=== PATIENT | female | born 1965 | race Caucasian/White ===

== ENCOUNTER 2019-05-22 14:37 | Emergency (ER) | payer MEDICAID ==
--- NOTE | 2019-05-22 16:04 | RADIOLOGY REPORT (SQ) ---
EXAM DESCRIPTION: CT HEAD WITHOUT COMPLETED DATE/TIME: 05/22/2019 3:51 pm REASON FOR STUDY: fall COMPARISON: 03/19/2015 TECHNIQUE: Axial images acquired through the brain without intravenous contrast. Images reviewed wi th bone, brain and subdural windows. Additional sagittal and coronal reconstructions were generated. Images stored on PACS. All CT scanners at this facility use dose modulation, iterative reconstruction, and/or weight based d osing when appropriate to reduce radiation dose to as low as reasonably achievable (ALARA). [facility]: Dose Right [facility]: CareDose [facility]: Dose Right [facility]: Teradose 4D [facility]: Smart IntroMaps RADIATION DOSE: CT Rad equipment meets quality standard of care and radiation dose reduction techniq ues were employed. CTDIvol: 53.2 mGy. DLP: 1017 mGy-cm. mGy. LIMITATIONS: None. FINDINGS: VENTRICLES: Normal size and contour. CEREBRUM: No masses. No hemorrhage. No midline shift. No evidence for acute infarction. Normal gra y/white matter differentiation. No areas of low density in the white matter. CEREBELLUM: No masses. No hemorrhage. No alteration of density. No evidence for acute infarction. EXTRAAXIAL SPACES: No fluid collections. No masses. ORBITS AND GLOBE: No intra- or extraconal masses. Normal contour of globe without masses. CALVARIUM: No fracture. PARANASAL SINUSES: No fluid or mucosal thickening. SOFT TISSUES: No mass or hematoma. OTHER: No other significant finding. IMPRESSION: No acute intracranial pathology. EVIDENCE OF ACUTE STROKE: NO. COMMENT: Quality ID # 436: Final reports with documentation of one or more dose reduction techniques (e.g., Automated exposure control, adjustment of the mA and/or kV according to patient size, use of iterative reconstruction technique) TECHNICAL DOCUMENTATION: JOB ID: [id number] [employer]- All Rights Reserved Reading location - IP/workstation name: [email or web address]
--- NOTE | 2019-05-22 16:06 | RADIOLOGY REPORT (SQ) ---
EXAM DESCRIPTION: CT CERVICAL SPINE WITHOUT COMPLETED DATE/TIME: 05/22/2019 3:51 pm REASON FOR STUDY: fall COMPARISON: CT of the cervical spine without contrast from 03/06/2010. TECHNIQUE: Axial images acquired through the cervical spine without intravenous contrast. Images re viewed with lung, soft tissue and bone windows. Reconstructed coronal and sagittal MPR images review ed. Images stored on PACS. All CT scanners at this facility use dose modulation, iterative reconstruction, and/or weight based d osing when appropriate to reduce radiation dose to as low as reasonably achievable (ALARA). [facility]: Dose Right [facility]: CareDose [facility]: Dose Right [facility]: Teradose 4D [facility]: The Online 401 RADIATION DOSE: CT Rad equipment meets quality standard of care and radiation dose reduction techniq ues were employed. CTDIvol: 28.8 mGy. DLP: 531 mGy-cm. LIMITATIONS: None. FINDINGS: ALIGNMENT: There is reversal of the normal lordotic curvature of the cervical spine. Ther e is no craniocervical or atlantoaxial dissociation. MINERALIZATION: Normal. VERTEBRAL BODIES: The cervical vertebral body heights are preserved. There is no fracture. DISCS: The C6-C7 intervertebral disc space is narrowed and there are prominent anterolateral endplate osteophytes. Evaluation of the spinal canal for stenosis or compression of the cord is limited due to the absence of intravenous contrast. FACETS, LATERAL MASSES, POSTERIOR ELEMENTS: No fracture or malalignment. No osteophytic foraminal st enosis. HARDWARE: None in the spine. VISUALIZED RIBS: No fractures. LUNG APICES AND SOFT TISSUES: 11 x 10 mm hypodense nodule in the anterior aspect of the right thyroid lobe. OTHER: No other finding. IMPRESSION: No acute fracture or malalignment of the cervical spine. TECHNICAL DOCUMENTATION: JOB ID: [id number] Quality ID # [id number]: Final reports with documentation of one or more dose reduction techniques (e.g., Au tomated exposure control, adjustment of the mA and/or kV according to patient size, use of iterative reconstruction technique) 2010 [employer]- All Rights Reserved Reading location - IP/workstation name: [email or web address]
--- NOTE | 2019-05-22 17:21 | ER Document Report ---
ED Dizziness/Weakness - General Chief Complaint: Dizziness Stated Complaint: DIZZINESS Time Seen by Provider: 05/22/19 17:05 Primary Care Provider: HARSHAL FOSTER MD [Primary Care Provider] - Follow up as needed Notes: Patient is a 54-year-old female with history of type 2 diabetes with neuropathy, cirrhosis, hypertension, high cholesterol, chronic dizziness who presents to the emergency department with a chief complaint of dizziness. Patient reports the dizziness began yesterday. Patient reports it feels like the room is spinning and that she could just fall out. Patient did have a fall in the lobby without a loss of consciousness, patient denies any injury or pain from this fall. Patient reports that her blood sugar has been running in the 500s in time even the 600s. Patient reports she has been out of her medications for the few months. Patient reports she recently relocated to [place] 1 month ago. Patient reports she did see Dr. Foster on Monday and was given prescription refills for her medications but that the pharmacy is having trouble filling them due to insurance issues from the other state that she was living in. Patient reports nausea without vomiting or diarrhea. Patient denies recent cough, cold or fever. Patient reports no one has ever given her any medications for her vertigo. Patient denies chest pain or shortness of breath. TRAVEL OUTSIDE OF THE [place] IN LAST 30 DAYS: No - Related Data Allergies/Adverse Reactions: Penicillins Allergy (Verified 04/16/15 11:38) Home Medications: lisinopril Past Medical History - General Information source: Patient - Social History Smoking Status: Unknown if Ever Smoked Lives with: Family Family History: Reviewed & Not Pertinent Patient has suicidal ideation: No Patient has homicidal ideation: No - Past Medical History Cardiac Medical History: Reports: Hx Hypercholesterolemia, Hx Hypertension Denies: Hx Atrial Fibrillation, Hx Congestive Heart Failure, Hx Coronary Artery Disease, Hx Heart Attack, Hx Peripheral Vascular Disease, Hx Pulmonary Embolism, Hx Heart Murmur Pulmonary Medical History: Reports: Hx Bronchitis, Hx COPD, Hx Pneumonia Denies: Hx Asthma, Hx Respiratory Failure, Hx Sleep Apnea, Hx Tuberculosis EENT Medical History: Reports: None Neurological Medical History: Reports: Hx Cerebrovascular Accident - CVA in 1995 (weakness remains L side), Hx Migraine, Hx Seizures. Denies: Hx Parkinson's Disease Endocrine Medical History: Reports: Hx Diabetes Mellitus Type 1, Hx Diabetes Mellitus Type 2. Denies: Hx Graves' Disease, Hx Hyperthyroidism, Hx Hypot hyroidism Renal/ Medical History: Reports: None. Denies: Hx End Stage Renal Disease, Hx Kidney Stones, Hx Ovarian Cysts, Hx Peritoneal Dialysis, Hx Pelvic Inflammatory Disease Malignancy Medical History: Reports: Hx Cervical Cancer. Denies: Hx Breast Cancer, Hx Leukemia, Hx Lung Cancer, Hx Ovarian Cancer GI Medical History: Reports: Hx Gastroesophageal Reflux Disease. Denies: Hx Crohn's Disease, Hx Hiatal Hernia, Hx Irritable Bowel, Hx Liver Failure, Hx Pancreatitis, Hx Ulcer Musculoskeletal Medical History: Reports Hx Arthritis, Denies Hx Fibromyalgia - Been told she should be tested for but never has been, Denies Hx Multiple Sclerosis, Denies Hx Muscular Dystrophy, Denies Hx Systemic Lupus Erythematosus Skin Medical History: Reports None Psychiatric Medical History: Reports: Hx Anxiety, Hx Depression Denies: Hx Bipolar Disorder - told by Dr. Paez she should be diagnosed, Hx Dementia, Hx Post Traumatic Stress Disorder, Hx Schizophrenia Traumatic Medical History: Reports: Hx Fractures - Both legs, R thumb Infectious Medical History: Reports: None. Denies: Hx HIV Past Surgical History: Reports: Hx Appendectomy, Hx Section - x2, Hx Hysterectomy, Hx Orthopedic Surgery - back--L3, 4, 5, Hx Umbilical Hernia, Hx Urinary Tract Surgery - bladder. Denies: Hx Bowel Surgery, Hx Cholecystectomy, Hx Colostomy, Hx Coronary Artery Bypass Graft, Hx Gastric Bypass Surgery, Hx Herniorrhaphy, Hx Mastectomy, Hx Pacemaker, Hx Tonsillectomy, Hx Tubal Ligation - Immunizations Immunizations up to date: Yes Hx Diphtheria, Pertussis, Tetanus Vaccination: Yes Review of Systems - Review of Systems Constitutional: No symptoms reported EENT: No symptoms reported Cardiovascular: Chest pain Respiratory: No symptoms reported Gastrointestinal: No symptoms reported Genitourinary: No symptoms reported Female Genitourinary: No symptoms reported Musculoskeletal: No symptoms reported Skin: No symptoms reported Hematologic/Lymphatic: No symptoms reported Neurological/Psychological: See HPI Physical Exam - Vital signs Vitals: Temp Pulse Resp BP Pulse Ox 98.3 F 92 18 161/65 H 96 05/22/19 15:30 05/22/19 15:30 05/22/19 15:30 05/22/19 15:30 05/22/19 15:30 Interpretation: Hypertensive - Notes Notes: GENERAL: Well-appearing, well-nourished and in no acute distress. HEAD: Atraumatic, normocephalic. EYES: Pupils equal round and reactive to light, extraocular movements intact, sclera anicteric, conjunctiva are normal. ENT: TMs normal, nares patent, oropharynx clear without exudates. Moist mucous membranes. NECK: Normal range of motion, supple without lymphadenopathy or JVD. LUNGS: Breath sounds clear to auscultation bilaterally and equal. No wheezes rales or rhonchi. HEART: Regular rate and rhythm without murmurs, rubs or gallops. ABDOMEN: Soft, nontender, normoactive bowel sounds. No guarding, no rebound. No masses appreciated. BACK: No cervical, thoracic, lumbar midline tenderness. No saddle anesthesia, normal distal neurovascular exam. GENITOURINARY: Deferred. EXTREMITIES: Normal range of motion, no pitting or edema. No clubbing or cyanosis. NEUROLOGICAL: Cranial nerves II through XII grossly intact. Normal speech, gait not tested due to dizziness complaint. PSYCH: Normal mood, normal affect. SKIN: Warm, Dry, normal turgor, no rashes or lesions noted. Course - Re-evaluation Re-evalutation: 05/22/19 19:59 Patient does not want to wait for the urinalysis, IV fluids or VBG. Patient agrees to sign out AGAINST MEDICAL ADVICE. Patient has been sitting upright on her stretcher in no acute distress. Patient reports as long as she does not get up quickly that her dizziness is actually better. Patient reports she does have chronic dizziness. Patient reports her main concern is her diabetes medication. I did inform her that since she saw Dr. Foster 2 days ago I would recommend calling his office tomorrow to explain to them that the pharmacy will not fill her medications. Patient is alert and oriented x4, speech is clear and appropriate. Patient denies pain at this time. Patient has been ambulating back and forth to the nurses station with her walker. We will recheck her blood sugar prior to discharge and give subcutaneous insulin as appropriate. I did encourage the patient after receiving insulin to make sure that she eats dinner tonight. Patient verbalized understanding and denies questions. 05/22/19 20:05 Patient's repeat glucose was 353. This is trending downward. Patient reiterated on importance of following up with her prescriptions for her insulin with Dr. Foster tomorrow. - Vital Signs Vital signs: Temp Pulse Resp BP Pulse Ox 98.3 F 92 18 161/65 H 96 05/22/19 15:30 05/22/19 15:30 05/22/19 15:30 05/22/19 15:30 05/22/19 15:30 - Laboratory Result Diagrams: 05/22/19 17:29 05/22/19 17:29 Laboratory results interpreted by me: 05/22/19 05/22/19 17:29 17:29 Plt Count 113 L Glucose 404 H* Alkaline Phosphatase 178 H Discharge - Discharge Clinical Impression: Dizziness Hyperglycemia due to type 2 diabetes mellitus Qualifiers: Diabetes mellitus half-way insulin use: with long term care pharmacist use Qualified Code(s): E11.65 - Type 2 diabetes mellitus with hyperglycemia Condition: Stable Disposition: AGAINST MEDICAL ADVICE Additional Instructions: *Today was seen in the emergency department for dizziness. It does appear that your blood sugar is extremely elevated at 404. This could contribute and make your dizziness that is chronic worse. We did want you to receive IV fluids and additional blood work but at this time you have politely declined this as you would like to leave. Please follow-up with your primary care physician Dr. Foster tomorrow, please call his office so you can get your prescriptions for your diabetes medications since you just saw him on Monday. Please return to the emergency department if you develop any new or worsening symptoms such as weakness, sweating, confusion or worsening dizziness that is different from your normal. We did obtain a CAT scan of your head and neck which were negative. Diabetes You have an abnormally high blood sugar, suspicious for diabetes. Not all high blood sugar requires long-term treatment. High blood sugar can be due to medications, , or the stress of illness. (These cases are "borderline diabetes.") If the doctor feels your high blood sugar might get better with time, you may not require treatment now. You will be scheduled for further evaluation. It's very important that you follow through. Uncontrolled high blood sugar leads to early heart disease, strokes, nerve damage, eye damage, and kidney damage. All diabetics should follow a diet designed to control the blood sugar. Overweight diabetics should exercise regularly and lose weight. If this is not sufficient to control the blood sugar, pills or insulin shots are necessary. Younger people who develop diabetes almost always require insulin daily. Home testing of blood sugars or urine sugar is required. Diabetic teaching is available to help you figure insulin doses and monitor the blood sugar. Call the physician if there is faintness, excess sleepiness, or very rapid breathing. If hypoglycemia (LOW blood sugar) develops, symptoms are shakiness, weakness, sweating, and confusion. In this case, you should eat or drink something with sugar at once. Referrals: HARSHAL FOSTER MD [Primary Care Provider] - Follow up as needed
[2019-05-22 18:12] LABS: ALBUMIN 4.3 g/dL (3.5-5.0); ALKALINE PHOSPHATASE 178 U/L (38-126); ANION GAP 10 (5-19); ASPARTATE AMINO TRANSFERASE 29 U/L (14-36); BILIRUBIN,DIRECT 0.3 mg/dL (0.0-0.4); BILIRUBIN,TOTAL 0.8 mg/dL (0.2-1.3); BLOOD UREA NITROGEN 13 mg/dL (7-20); CARBON DIOXIDE 28 mmol/L (22-30); CHLORIDE 101 mmol/L (98-107); POTASSIUM 4.5 mmol/L (3.6-5.0); TOTAL PROTEIN 7.3 g/dL (6.3-8.2)
[2019-05-22 18:15] LABS: ABSOLUTE BASOPHILS # (AUTO) 0.1 10^3/uL (0.0-0.2); ABSOLUTE EOSINOPHILS # (AUTO) 0.3 10^3/uL (0.0-0.6); ABSOLUTE LYMPHOCYTES (AUTO) 2.6 10^3/uL (0.5-4.7); ABSOLUTE MONOCYTES (AUTO) 0.4 10^3/uL (0.1-1.4); ABSOLUTE NEUT (AUTO) 4.2 10^3/uL (1.7-8.2); BASOPHILS % (AUTO) 0.7 % (0-2); EOSINOPHILS % (AUTO) 3.5 % (0-6); HEMATOCRIT 44.7 % (36.0-47.0); HEMOGLOBIN 15.2 g/dL (12.0-15.5); LYMPHOCYTES % (AUTO) 34.3 % (13-45); MEAN CORPUSCULAR HEMOGLOBIN 31.8 pg (27.0-33.4); MEAN CORPUSCULAR HGB CONC 34.1 g/dL (32.0-36.0); MEAN CORPUSCULAR VOLUME 94 fl (80-97); MONOCYTES % (AUTO) 5.3 % (3-13); PLATELET COUNT 113 10^3/uL (150-450); RED BLOOD COUNT 4.78 10^6/uL (3.72-5.28); RED CELL DISTRIBUTION WIDTH 13.8 % (11.5-14.0); SEGMENTED NEUTROPHILS % (AUTO) 56.2 % (42-78); TOTAL CELLS COUNTED % (AUTO) 100 %; WHITE BLOOD COUNT 7.5 10^3/uL (4.0-10.5)
[2019-05-22 18:32] LABS: GLUCOSE 404 mg/dL (75-110)
[2019-05-22] MEDS ORDERED: NORMAL SALINE 1000 ML 1,000 ML IV ONE (18:42)
[2019-05-22 20:22] VITALS: BP 153/74
--- NOTE | 2019-05-23 22:04 | EKG REPORT ---
SEVERITY:- NORMAL ECG - SINUS RHYTHM : Confirmed by: Julio Medellin 23-May-2019 22:03:06
== END 2019-05-22 20:20 | disposition left against medical advice (07) ==
LOC: ER 14:37
DX: E11.65 Type 2 diabetes mellitus with hyperglycemia (principal); R42 Dizziness and giddiness; R11.0 Nausea; W18.30XA Fall on same level, unspecified, initial encounter; Y92.239 Unspecified place in hospital as the place of occurrence of the external cause; E11.40 Type 2 diabetes mellitus with diabetic neuropathy, unspecified; I10 Essential (primary) hypertension; J44.9 Chronic obstructive pulmonary disease, unspecified
CPT/HCPCS: 93005; 99284; 36415; 82962; 85025; 80053; 84484; 70450; 72125; 93010; L0120

== ENCOUNTER 2019-06-06 16:12 | Observation (INO) | payer MEDICAID ==
--- NOTE | 2019-06-06 16:29 | ER Document Report ---
ED Medical Screen (RME) - General Chief Complaint: High Blood Sugar Stated Complaint: BLOOD SUGAR TOO HIGH Time Seen by Provider: 06/06/19 16:23 Primary Care Provider: HARSHAL FOSTER MD [Primary Care Provider] - Follow up as needed Mode of Arrival: Wheelchair Information source: Patient Notes: 54-year-old female patient presenting to the emergency department with slurred speech, stuttering speech and sudden onset severe headache. Her friend accompanies her, says they were out to lunch and she was acting fine when all of a sudden she started yelling emergency emergency and started slurring her speech. She is hyperventilating in triage, and is difficult to get an appropriate assessment, she is maintaining her own airway. She will be sent immediately for CT of her head due to the sudden onset headache and apparent altered mental status. She has also not taken her insulin for at least 1 month due to insurance issues. I have greeted and performed a rapid initial assessment of this patient. A comprehensive ED assessment and evaluation of the patient, analysis of test results and completion of the medical decision making process will be conducted by additional ED providers. I have specifically instructed the patient or family members with the patient to immediately return to any nursing staff should anything change in the patient's condition or with their chief complaint. TRAVEL OUTSIDE OF THE [place] IN LAST 30 DAYS: No - Related Data Allergies/Adverse Reactions: carvedilol [From Coreg] Allergy (Verified 06/06/19 16:26) Penicillins Allergy (Verified 06/06/19 16:25) Sulfa (Sulfonamide Antibiotics) Allergy (Verified 06/06/19 16:26) Past Medical History - Past Medical History Cardiac Medical History: Reports: Hx Hypercholesterolemia, Hx Hypertension Denies: Hx Atrial Fibrillation, Hx Congestive Heart Failure, Hx Coronary Artery Disease, Hx Heart Attack, Hx Peripheral Vascular Disease, Hx Pulmonary Embolism, Hx Heart Murmur Pulmonary Medical History: Reports: Hx Bronchitis, Hx COPD, Hx Pneumonia Denies: Hx Asthma, Hx Respiratory Failure, Hx Sleep Apnea, Hx Tuberculosis Neurological Medical History: Reports: Hx Cerebrovascular Accident - CVA in 1995 (weakness remains L side), Hx Migraine, Hx Seizures. Denies: Hx Parkinson's Disease Endocrine Medical History: Reports: Hx Diabetes Mellitus Type 1, Hx Diabetes Mellitus Type 2. Denies: Hx Graves' Disease, Hx Hyperthyroidism, Hx Hypothyroidism Renal/ Medical History: Denies: Hx End Stage Renal Disease, Hx Kidney Stones, Hx Ovarian Cysts, Hx Peritoneal Dialysis, Hx Pelvic Inflammatory Disease Malignancy Medical History: Reports: Hx Cervical Cancer. Denies: Hx Breast Cancer, Hx Leukemia, Hx Lung Cancer, Hx Ovarian Cancer GI Medical History: Reports: Hx Gastroesophageal Reflux Disease. Denies: Hx Crohn's Disease, Hx Hiatal Hernia, Hx Irritable Bowel, Hx Liver Failure, Hx Panc reatitis, Hx Ulcer Musculoskeltal Medical History: Reports Hx Arthritis, Denies Hx Fibromyalgia - Been told she should be tested for but never has been, Denies Hx Multiple Scl erosis, Denies Hx Muscular Dystrophy, Denies Hx Systemic Lupus Erythematosus Psychiatric Medical History: Reports: Hx Anxiety, Hx Depression Denies: Hx Bipolar Disorder - told by Dr. Paez she should be diagnosed, Hx Dementia, Hx Post Traumatic Stress Disorder, Hx Schizophrenia Traumatic Medical History: Reports: Hx Fractures - Both legs, R thumb Infectious Medical History: Denies: Hx HIV Past Surgical History: Reports: Hx Appendectomy, Hx Section - x2, Hx Hysterectomy, Hx Orthopedic Surgery - back--L3, 4, 5, Hx Umbilical Hernia, Hx Urinary Tract Surgery - bladder. Denies: Hx Bowel Surgery, Hx Cholecystectomy, Hx Colostomy, Hx Coronary Artery Bypass Graft, Hx Gastric Bypass Surgery, Hx Herniorrhaphy, Hx Mastectomy, Hx Pacemaker, Hx Tonsillectomy, Hx Tubal Ligation - Immunizations Immunizations up to date: Yes Hx Diphtheria, Pertussis, Tetanus Vaccination: Yes Physical Exam - Vital signs Vitals: Temp Pulse Resp BP Pulse Ox 98.0 F 103 H 18 132/72 H 100 06/06/19 16:20 06/06/19 16:20 06/06/19 16:20 06/06/19 16:20 06/06/19 16:20 Course - Vital Signs Vital signs: Temp Pulse Resp BP Pulse Ox 98.0 F 103 H 18 132/72 H 100 06/06/19 16:20 06/06/19 16:20 06/06/19 16:20 06/06/19 16:20 06/06/19 16:20 Doctor's Discharge - Discharge Referrals: HARSHAL FOSTER MD [Primary Care Provider] - Follow up as needed
--- NOTE | 2019-06-06 16:47 | RADIOLOGY REPORT (SQ) ---
EXAM DESCRIPTION: CHEST SINGLE VIEW COMPLETED DATE/TIME: 06/06/2019 4:39 pm REASON FOR STUDY: headache COMPARISON: 04/16/2015. EXAM PARAMETERS: NUMBER OF VIEWS: One view. TECHNIQUE: Single frontal radiographic view of the chest acquired. RADIATION DOSE: NA LIMITATIONS: None. FINDINGS: LUNGS AND PLEURA: No opacities, masses or pneumothorax. No pleural effusion. MEDIASTINUM AND HILAR STRUCTURES: No masses. Contour normal. HEART AND VASCULAR STRUCTURES: Heart normal in size. Normal vasculature. BONES: No acute findings. HARDWARE: None in the chest. OTHER: No other significant finding. IMPRESSION: NO ACUTE RADIOGRAPHIC FINDING IN THE CHEST. TECHNICAL DOCUMENTATION: JOB ID: [id number] [employer]- All Rights Reserved Reading location - IP/workstation name: [email or web address]
--- NOTE | 2019-06-06 16:47 | RADIOLOGY REPORT (SQ) ---
EXAM DESCRIPTION: CT HEAD WITHOUT COMPLETED DATE/TIME: 06/06/2019 4:37 pm REASON FOR STUDY: headache COMPARISON: 05/22/2019. TECHNIQUE: Axial images acquired through the brain without intravenous contrast. Images reviewed wi th bone, brain and subdural windows. Additional sagittal and coronal reconstructions were generated. Images stored on PACS. All CT scanners at this facility use dose modulation, iterative reconstruction, and/or weight based d osing when appropriate to reduce radiation dose to as low as reasonably achievable (ALARA). [facility]: Dose Right [facility]: CareDose [facility]: Dose Right [facility]: Teradose 4D [facility]: [employer] RADIATION DOSE: CT Rad equipment meets quality standard of care and radiation dose reduction techniq ues were employed. CTDIvol: 53.2 mGy. DLP: 1124 mGy-cm. mGy. LIMITATIONS: None. FINDINGS: VENTRICLES: Normal size and contour. CEREBRUM: No masses. No hemorrhage. No midline shift. No evidence for acute infarction. Normal gra y/white matter differentiation. No areas of low density in the white matter. CEREBELLUM: No masses. No hemorrhage. No alteration of density. No evidence for acute infarction. EXTRAAXIAL SPACES: No fluid collections. No masses. ORBITS AND GLOBE: No intra- or extraconal masses. Normal contour of globe without masses. CALVARIUM: No fracture. PARANASAL SINUSES: No fluid or mucosal thickening. SOFT TISSUES: No mass or hematoma. OTHER: No other significant finding. IMPRESSION: NORMAL BRAIN CT WITHOUT CONTRAST. EVIDENCE OF ACUTE STROKE: NO. COMMENT: Pertinent positive or negative findings of the imaging study reported as a CRITICAL EXAM claudia ALCALA NP at16:40 on 06/06/2019. Category of Critical Exam: Stroke alert. Quality ID # [id number]: Final reports with documentation of one or more dose reduction techniques (e.g., Au tomated exposure control, adjustment of the mA and/or kV according to patient size, use of iterative reconstruction technique) TECHNICAL DOCUMENTATION: JOB ID: [id number] [employer]- All Rights Reserved Reading location - IP/workstation name: [email or web address]
[2019-06-06 17:14] LABS: INTERNATIONAL RATION (INR) 0.98; PARTIAL THROMBOPLASTIN TIME 24.1 SEC (23.5-35.8)
[2019-06-06 17:16] LABS: VENOUS BLOOD BASE EXCESS -0.1 mmol/L; VENOUS BLOOD HCO3 25.3 mmol/L (20-32); VENOUS BLOOD PCO2 43.6 mmHg (35-63); VENOUS BLOOD PH 7.38 (7.30-7.42)
[2019-06-06 17:17] LABS: ABSOLUTE EOSINOPHILS # (AUTO) 0.1 10^3/uL (0.0-0.6); ABSOLUTE LYMPHOCYTES (AUTO) 1.2 10^3/uL (0.5-4.7); ABSOLUTE MONOCYTES (AUTO) 0.3 10^3/uL (0.1-1.4); ABSOLUTE NEUT (AUTO) 2.3 10^3/uL (1.7-8.2); BASOPHILS % (AUTO) 0.6 % (0-2); EOSINOPHILS % (AUTO) 1.7 % (0-6); HEMATOCRIT 39.6 % (36.0-47.0); HEMOGLOBIN 13.5 g/dL (12.0-15.5); LYMPHOCYTES % (AUTO) 30.2 % (13-45); MEAN CORPUSCULAR HEMOGLOBIN 31.6 pg (27.0-33.4); MEAN CORPUSCULAR HGB CONC 34.1 g/dL (32.0-36.0); MEAN CORPUSCULAR VOLUME 93 fl (80-97); MONOCYTES % (AUTO) 6.9 % (3-13); RED BLOOD COUNT 4.27 10^6/uL (3.72-5.28); RED CELL DISTRIBUTION WIDTH 13.2 % (11.5-14.0); SEGMENTED NEUTROPHILS % (AUTO) 60.6 % (42-78); TOTAL CELLS COUNTED % (AUTO) 100 %; WHITE BLOOD COUNT 3.9 10^3/uL (4.0-10.5)
[2019-06-06 17:19] LABS: PLATELET COUNT 95 10^3/uL (150-450)
[2019-06-06 17:34] LABS: ALBUMIN 3.8 g/dL (3.5-5.0); ALKALINE PHOSPHATASE 211 U/L (38-126); ANION GAP 11 (5-19); ASPARTATE AMINO TRANSFERASE 29 U/L (14-36); BILIRUBIN,DIRECT 0.5 mg/dL (0.0-0.4); BILIRUBIN,TOTAL 0.7 mg/dL (0.2-1.3); BLOOD UREA NITROGEN 13 mg/dL (7-20); CARBON DIOXIDE 28 mmol/L (22-30); CHLORIDE 95 mmol/L (98-107); CREATINE KINASE 100 U/L (30-135); POTASSIUM 4.3 mmol/L (3.6-5.0); TOTAL PROTEIN 6.2 g/dL (6.3-8.2)
[2019-06-06 17:48] LABS: GLUCOSE 649 mg/dL (75-110)
[2019-06-06 18:01] LABS: TROPONIN I < 0.012 ng/mL
--- NOTE | 2019-06-06 18:33 | EKG REPORT ---
SEVERITY:- NORMAL ECG - SINUS RHYTHM : Confirmed by: Tommy Butler MD 06-Jun-2019 18:32:14
--- NOTE | 2019-06-06 18:35 | ER Document Report ---
ED General - General Chief Complaint: High Blood Sugar Stated Complaint: BLOOD SUGAR TOO HIGH Time Seen by Provider: 06/06/19 16:23 Primary Care Provider: HARSHAL FOSTER MD [ACTIVE STAFF] - Follow up as needed Mode of Arrival: Wheelchair Information source: Patient TRAVEL OUTSIDE OF THE U.S. IN LAST 30 DAYS: No - HPI Onset: This morning - 54-year-old female arrived with severe diabetes insulin- dependent but off of her insulin for 1 month since she moved here from [place]. Today she began to have slurred speech and arrives with orientation x4. She had "just come from a [employer] dinner where she just ate rice." Staff ordered labs and the patient had a 649 blood sugar on chemistries Onset/Duration: Sudden Quality of pain: No pain Severity: Mild Pain Level: 1 Associated symptoms: Leg swelling, Nausea, Other - She has a history of JACKMAN with liver cirrhosis. Also has leg edema +1 pitting as well as dizziness. Patient usually takes 4 medications for her sugar diabetes. Exacerbated by: Movement Similar symptoms previously: Yes Recently seen / treated by doctor: No - Related Data Allergies/Adverse Reactions: carvedilol [From Coreg] Allergy (Verified 06/06/19 16:26) Penicillins Allergy (Verified 06/06/19 16:25) Sulfa (Sulfonamide Antibiotics) Allergy (Verified 06/06/19 16:26) Past Medical History - General Information source: Patient - Social History Smoking Status: Unknown if Ever Smoked Cigarette use (# per day): No Chew tobacco use (# tins/day): No Smoking Education Provided: No Frequency of alcohol use: None Drug Abuse: None Family History: Reviewed & Not Pertinent Patient has suicidal ideation: No Patient has homicidal ideation: No - Past Medical History Cardiac Medical History: Reports: Hx Hypercholesterolemia, Hx Hypertension Denies: Hx Atrial Fibrillation, Hx Congestive Heart Failure, Hx Coronary Artery Disease, Hx Heart Attack, Hx Peripheral Vascular Disease, Hx Pulmonary Embolism, Hx Heart Murmur Pulmonary Medical History: Reports: Hx Bronchitis, Hx COPD, Hx Pneumonia Denies: Hx Asthma, Hx Respiratory Failure, Hx Sleep Apnea, Hx Tuberculosis Neurological Medical History: Reports: Hx Cerebrovascular Accident - CVA in 1995 (weakness remains L side), Hx Migraine, Hx Seizures. Denies: Hx Parkinson's Disease Endocrine Medical History: Reports: Hx Diabetes Mellitus Type 1, Hx Diabetes Mellitus Type 2. Denies: Hx Graves' Disease, Hx Hyperthyroidism, Hx Hypothyroidism Renal/ Medical History: Denies: Hx End Stage Renal Disease, Hx Kidney Stones, Hx Ovarian Cysts, Hx Peritoneal Dialysis, Hx Pelvic Inflammatory Disease Malignancy Medical History: Reports: Hx Cervical Cancer. Denies: Hx Breast Cancer, Hx Leukemia, Hx Lung Cancer, Hx Ovarian Cancer GI Medical History: Reports: Hx Gastroesophageal Reflux Disease. Denies: Hx Ladle Repairer hn's Disease, Hx Hiatal Hernia, Hx Irritable Bowel, Hx Liver Failure, Hx Pancreatitis, Hx Ulcer Musculoskeletal Medical History: Reports Hx Arthritis, Denies Hx Fibromyalgia - Been told she should be tested for but never has been, Denies Hx Multiple Sclerosis, Denies Hx Muscular Dystrophy, Denies Hx Systemic Lupus Erythematosus Psychiatric Medical History: Reports: Hx Anxiety, Hx Depression Denies: Hx Bipolar Disorder - told by Dr. Paez she should be diagnosed, Hx Dementia, Hx Post Traumatic Stress Disorder, Hx Schizophrenia Traumatic Medical History: Reports: Hx Fractures - Both legs, R thumb Infectious Medical History: Denies: Hx HIV Past Surgical History: Reports: Hx Appendectomy, Hx Section - x2, Hx Hysterectomy, Hx Orthopedic Surgery - back--L3, 4, 5, Hx Umbilical Hernia, Hx Urinary Tract Surgery - bladder. Denies: Hx Bowel Surgery, Hx Cholecystectomy, Hx Colostomy, Hx Coronary Artery Bypass Graft, Hx Gastric Bypass Surgery, Hx Herniorrhaphy, Hx Mastectomy, Hx Pacemaker, Hx Tonsillectomy, Hx Tubal Ligation - Immunizations Immunizations up to date: Yes Hx Diphtheria, Pertussis, Tetanus Vaccination: Yes Review of Systems - Review of Systems Constitutional: Malaise, Weakness EENT: Other - vertigo Cardiovascular: No symptoms reported Respiratory: No symptoms reported Gastrointestinal: Nausea Genitourinary: Dysuria Female Genitourinary: Other - Groin with skin rash yeast Musculoskeletal: Joint swelling, Leg swelling, Ankle swelling Skin: Rash Hematologic/Lymphatic: No symptoms reported Neurological/Psychological: No symptoms reported Physical Exam - Vital signs Vitals: Pulse Ox 98 06/06/19 16:14 Interpretation: Normal - General General appearance: Alert In distress: None - HEENT Head: Normocephalic Eyes: Normal Conjunctiva: Normal Cornea: Normal Extraocular movements intact: Yes Eyelashes: Normal Pupils: PERRL Ears: Normal External canal: Normal Sinus: Normal Nasal: Normal Mucous membranes: Dry Pharynx: Erythema Neck: Normal - Respiratory Respiratory status: No respiratory distress Chest status: Nontender Breath sounds: Normal Chest palpation: Normal - Cardiovascular Rhythm: Regular Heart sounds: Normal auscultation Murmur: No Friction rub: No Kuldeep's crunch: No - Abdominal Inspection: Normal Distension: No distension Bowel sounds: Normal Tenderness: Nontender Organomegaly: Hepatomegaly - Back Back: Normal - Extremities General upper extremity: Normal inspection General lower extremity: Edema Shoulder: Normal Arm: Normal Elbow: Normal Forearm: Normal Wrist: Normal Hand: Normal - Neurological Neuro grossly intact: Yes Cognition: Normal Orientation: AAOx4 [place] Coma Scale Eye Opening: Spontaneous [place] Coma Scale Verbal: Oriented [place] Coma Scale Motor: Obeys Commands [place] Coma Scale Total: 15 Speech: Normal Cranial nerves: Normal Cerebellar coordination: Normal - Psychological Associated symptoms: Normal affect - Skin Skin Temperature: Warm Skin Color: Erythema Course - Vital Signs Vital signs: Temp Pulse Resp BP Pulse Ox 98.0 F 92 12 130/81 H 98 06/06/19 16:20 06/06/19 17:00 06/06/19 22:16 06/06/19 22:16 06/06/19 22:16 - Laboratory Result Diagrams: 06/06/19 16:56 06/06/19 16:56 Laboratory results interpreted by me: 06/06/19 06/06/19 06/06/19 16:56 16:56 21:51 WBC 3.9 L Plt Count 95 L Sodium 133.7 L Chloride 95 L Glucose 649 H* POC Glucose > 550 H* Direct Bilirubin 0.5 H Alkaline Phosphatase 211 H Total Protein 6.2 L 06/06/19 06/06/19 22:31 23:03 WBC Plt Count Sodium Chloride Glucose POC Glucose 546 H* 426 H* Direct Bilirubin Alkaline Phosphatase Total Protein - EKG Interpretation by Me EKG shows normal: Sinus rhythm Rate: Normal - 92 bpm Critical Care Note - Critical Care Note Total time excluding time spent on procedures (mins): 90 Comments: Around 1900 patient pulled out her IV porting that she will get something to drink and eat on her own. Advised me that she was not leaving but she will get something to drink. Already okayed her drinking water. I discussed this case with Dr. Trip Santillan advises another 10 unit push of insulin and then recheck fingerstick blood sugar in 1 hour I spoke with Dr. Dominique again but he advised me that the patient actually sees Dr Mccrary he was called at 00 30 and advised admission Discharge - Discharge Clinical Impression: Hyperglycemia, Tinea, Liver disease Condition: Good Disposition: ADMITTED INPATIENT Admitting Provider: Lidya Unit Admitted: Medical Floor Referrals: HARSHAL FOSTER MD [ACTIVE STAFF] - Follow up as needed
[2019-06-06] MEDS ORDERED: INSULIN REG, HUMAN 100 UNIT/ML 3 ML VIAL (PYX) IV ONE ×2 (19:13→19:14)
[2019-06-06] MEDS ORDERED: NORMAL SALINE 1000 ML 1,000 ML IV ONE (19:16)
[2019-06-06] MEDS ORDERED: FLUCONAZOLE 100 MG TABLET PO ONE (22:42)
[2019-06-07 00:53] LABS: APPEARANCE,URINE CLEAR; BILIRUBIN,URINE NEGATIVE (NEGATIVE); COLOR,URINE YELLOW; GLUCOSE, URINE >=500 mg/dL (NEGATIVE); KETONES,URINE NEGATIVE (NEGATIVE); LEUKOCYTE ESTERASE,URINE NEGATIVE (NEGATIVE); NITRITE,URINE NEGATIVE (NEGATIVE); PROTEIN,URINE NEGATIVE (NEGATIVE); UROBILINOGEN,URINE NEGATIVE mg/dL (<2.0)
[2019-06-07 01:29] LABS: CREATINE KINASE MB 0.75 ng/mL (<4.55); NT PRO BNP 97 pg/mL (<125)
[2019-06-07 01:31] LABS: TROPONIN I < 0.012 ng/mL
[2019-06-07] MEDS ORDERED: NORMAL SALINE 1000 ML 1,000 ML IV PRN (06:11)
[2019-06-07] MEDS ORDERED: NORMAL SALINE 100 ML with INSULIN REGULAR, HUMAN 100 UNIT SUBCUT PRN ×2 (06:13)
[2019-06-07] MEDS ORDERED: DEXTROSE 50%-WATER SYRINGE 12.5 GM/25 ML DOSE IV PRN (06:30)
[2019-06-07] MEDS ORDERED: DEXTROSE 50%-WATER SYRINGE 25 GM/50 ML DOSE IV PRN (06:30)
[2019-06-07] MEDS ORDERED: INSULIN, REGULAR 100 UNIT/100 ML NORMAL SALINE IV PRN ×2 (06:30)
[2019-06-07] MEDS ORDERED: DEXTROSE 40% GEL 15 GM TUBE X 2 PO PRN (06:30)
[2019-06-07] MEDS ORDERED: DEXTROSE 40% GEL 15 GM TUBE PO PRN (06:30)
[2019-06-07] MEDS ORDERED: GLUCAGON,HUMAN RECOMB 1 MG INJ IM PRN (06:30)
[2019-06-07 07:18] LABS: ANION GAP 10 (5-19); BLOOD UREA NITROGEN 10 mg/dL (7-20); CALCIUM 9.3 mg/dL (8.4-10.2); CARBON DIOXIDE 26 mmol/L (22-30); CHLORIDE 105 mmol/L (98-107); GLUCOSE 246 mg/dL (75-110)
[2019-06-07 07:31] LABS: POTASSIUM 3.4 mmol/L (3.6-5.0)
[2019-06-07 08:20] VITALS: BP 124/72
--- NOTE | 2019-06-07 20:12 | PDOC H&P ---
History of Present Illness Admission Date/PCP: 06/07/19 01:14 History of Present Illness: MARCELLUS GUILLERMO is a 54 year old female, Patient with type 2 diabetes mellitus, she just relocated from [place], she has Medicaid insurance, she has been having difficulty getting her medication filled, she came emergency room for evaluation of poorly controlled diabetes, The blood sugar was over 600.She was started on insulin drip. My office has been making arrangement with Medicaid to get patient approved for her medications Past Medical History Cardiac Medical History: Reports: Hyperlipidema, Hypertension Pulmonary Medical History: Reports: Bronchitis, Chronic Obstructive Pulmonary Disease (COPD), Pneumonia Neurological Medical History: Reports: Migraine, Seizures Endocrine Medical History: Reports: Diabetes Mellitus Type 2 Malignancy Medical History: Reports: Cervical Cancer GI Medical History: Reports: Gastroesophageal Reflux Disease Musculoskeltal Medical History: Reports: Arthritis Psychiatric Medical History: Reports: Depression Past Surgical History Past Surgical History: Reports: Appendectomy, Section - x2, Hysterectomy, Orthopedic Surgery - back--L3, 4, 5 Social History Smoking Status: Current Some Day Smoker Cigarettes Packs Per Day: 0.2 Electronic Cigarette use?: Yes - "Not lately" Number of Years Smokin Last Time Smoked: t-1 Frequency of Alcohol Use: None Hx Recreational Drug Use: No Hx Prescription Drug Abuse: No Family History Family History: Reviewed & Not Pertinent Parental Family History Reviewed: Yes Children Family History Reviewed: Yes Sibling(s) Family History Reviewed.: Yes Medication/Allergy Home Medications: Fluticasone Propionate [Flonase Nasal [place] 50 Mcg/[place] 16 gm] 1 spray NASL DAILY 06/07/19 Gabapentin [Neurontin 400 mg Capsule] 400 mg PO BID 06/07/19 Lorazepam [Ativan 0.5 mg Tablet] 0.5 mg PO Q12HP PRN 06/07/19 Meloxicam [Mobic] 15 mg PO DAILY 06/07/19 Spironolactone [Aldactone 100 mg Tablet] 1 tab PO DAILY 06/07/19 Allergies/Adverse Reactions: carvedilol [From Coreg] Allergy (Verified 06/06/19 16:26) Penicillins Allergy (Verified 06/06/19 16:25) Sulfa (Sulfonamide Antibiotics) Allergy (Verified 06/06/19 16:26) Review of Systems Constitutional: ABSENT: chills, fever(s), headache(s), weight gain, weight loss Eyes: ABSENT: visual disturbances Ears: ABSENT: hearing changes Cardiovascular: ABSENT: chest pain, dyspnea on exertion, edema, orthropnea, palpitations Respiratory: ABSENT: cough, hemoptysis Gastrointestinal: ABSENT: abdominal pain, constipation, diarrhea, hematemesis, hematochezia, nausea, vomiting Genitourinary: ABSENT: dysuria, hematuria Musculoskeletal: ABSENT: joint swelling Integumentary: ABSENT: rash, wounds Neurological: ABSENT: abnormal gait, abnormal speech, confusion, dizziness, focal weakness, syncope Psychiatric: ABSENT: anxiety, depression, homidical ideation, suicidal ideation Endocrine: PRESENT: polydipsia, polyuria Hematologic/Lymphatic: ABSENT: easy bleeding, easy bruising, lymphadenopathy Physical Exam Vital Signs: Temp Pulse Resp BP Pulse Ox 98.1 F 78 18 124/72 99 06/07/19 08:13 06/07/19 08:13 06/07/19 08:13 06/07/19 08:13 06/07/19 08:13 Intake & Output 06/06/19 06/07/19 06/08/19 06:59 06:59 06:59 Intake Total 200 1115 Balance 200 1115 Weight 101.9 kg General appearance: PRESENT: obese Head exam: PRESENT: atraumatic, normocephalic Eye exam: PRESENT: PERRLA Ear exam: PRESENT: normal external ear exam Mouth exam: PRESENT: moist, tongue midline Neck exam: PRESENT: full ROM Respiratory exam: PRESENT: clear to auscultation aniket Cardiovascular exam: PRESENT: RRR, +S1, +S2 Pulses: PRESENT: normal dorsalis pedis pul, +2 pedal pulses bilateral Vascular exam: PRESENT: normal capillary refill GI/Abdominal exam: PRESENT: normal bowel sounds, soft Rectal exam: PRESENT: deferred Neurological exam: PRESENT: alert, CN II-XII grossly intact Psychiatric exam: PRESENT: appropriate affect, normal mood Skin exam: PRESENT: dry Results Laboratory Results: 06/06/19 16:56 06/07/19 06:34 06/07/19 06/07/19 00:35 06:34 Sodium 140.6 Potassium 3.4 L Chloride 105 Carbon Dioxide 26 Anion Gap 10 BUN 10 Creatinine 0.51 L Est GFR ( Amer) > 60 Glucose 246 H Calcium 9.3 Urine Color YELLOW Urine Appearance CLEAR Urine pH 6.0 Ur Specific [place] 1.030 Urine Protein NEGATIVE Urine Glucose (UA) >=500 H Urine Ketones NEGATIVE Urine Blood NEGATIVE Urine Nitrite NEGATIVE Ur Leukocyte Esterase NEGATIVE Urine WBC (Auto) 0 Urine RBC (Auto) 0 06/06/19 06/06/19 06/07/19 16:56 16:56 00:49 Creatine Kinase 100 CK-MB (CK-2) 1.20 0.75 Troponin I < 0.012 < 0.012 NT-Pro-B Natriuret Pep 97 Impressions: Chest X-Ray 06/06/19 16:26 IMPRESSION: NO ACUTE RADIOGRAPHIC FINDING IN THE CHEST. Head CT 06/06/19 16:26 IMPRESSION: NORMAL BRAIN CT WITHOUT CONTRAST. EVIDENCE OF ACUTE STROKE: NO. Assessment & Plan - Diagnosis (1) Diabetic hyperosmolar non-ketotic state Is this a current diagnosis for this admission?: Yes Plan: Patient treated with intravenous normal saline, insulin drip (2) Morbid obesity Is this a current diagnosis for this admission?: Yes
--- NOTE | 2019-06-07 20:26 | Left Against Medical Advice ---
Against Medical Advice Admission Date/Time: 06/07/19 01:14 Primary Care Provider: Date of Patient Emigration: 06/07/19 - Diagnosis: (1) Diabetic hyperosmolar non-ketotic state Is this a current diagnosis for this admission?: Yes (2) Morbid obesity Is this a current diagnosis for this admission?: Yes - Summary: Summary: Please see Admission and Progress Notes as well. MARCELLUS GUILLERMO is a 54 F, who LEFT AGAINST MEDICAL ADVICE. The Patient was admitted on 06/07/19 01:14 Patient left AMA before management was complete, she was admitted today
== END 2019-06-07 11:05 | disposition left against medical advice (07) ==
LOC: ER 16:12 → INTOOBSV 06-07 01:14 → EH 06-07 01:14 → 3W 06-07 03:07
PROVIDERS: ADMIT Internal Medicine; ATTEND Internal Medicine
DX: E11.00 Type 2 diabetes mellitus with hyperosmolarity without nonketotic hyperglycemic-hyperosmolar coma (NKHHC) (principal); T38.3X6A Underdosing of insulin and oral hypoglycemic [antidiabetic] drugs, initial encounter; E66.01 Morbid (severe) obesity due to excess calories; Z85.41 Personal history of malignant neoplasm of cervix uteri; Z90.49 Acquired absence of other specified parts of digestive tract; F17.210 Nicotine dependence, cigarettes, uncomplicated; K75.81 Nonalcoholic steatohepatitis (NASH); R60.0 Localized edema; I69.354 Hemiplegia and hemiparesis following cerebral infarction affecting left non-dominant side; B35.9 Dermatophytosis, unspecified; R51 Headache
CPT/HCPCS: 93005; 99285; 96360; 96361; 36415 ×2; 82553 ×2; 82962 ×2; 82550; 85025; 85610; 85730; 80048; 80053; 81001; 84484 ×2; 82803; 83880; 71045; 70450; 93010; G0378 ×2; J1815 ×2; J7050; J7030 ×2; J3490

== ENCOUNTER 2019-07-02 22:06 | Inpatient (IN) | payer MEDICAID ==
[2019-07-03 01:50] LABS: ABSOLUTE EOSINOPHILS # (AUTO) 0.1 10^3/uL (0.0-0.6); ABSOLUTE MONOCYTES (AUTO) 0.5 10^3/uL (0.1-1.4); ABSOLUTE NEUT (AUTO) 4.8 10^3/uL (1.7-8.2); BASOPHILS % (AUTO) 0.5 % (0-2); EOSINOPHILS % (AUTO) 1.3 % (0-6); HEMATOCRIT 39.2 % (36.0-47.0); HEMOGLOBIN 13.5 g/dL (12.0-15.5); LYMPHOCYTES % (AUTO) 35.6 % (13-45); MEAN CORPUSCULAR HEMOGLOBIN 31.2 pg (27.0-33.4); MEAN CORPUSCULAR HGB CONC 34.4 g/dL (32.0-36.0); MEAN CORPUSCULAR VOLUME 91 fl (80-97); MONOCYTES % (AUTO) 5.6 % (3-13); PLATELET COUNT 121 10^3/uL (150-450); RED BLOOD COUNT 4.32 10^6/uL (3.72-5.28); TOTAL CELLS COUNTED % (AUTO) 100 %; WHITE BLOOD COUNT 8.5 10^3/uL (4.0-10.5)
[2019-07-03 01:59] LABS: INTERNATIONAL RATION (INR) 1.09; PROTHROMBIN TIME 14.1 SEC (11.4-15.4)
[2019-07-03 02:08] LABS: ALBUMIN 3.4 g/dL (3.5-5.0); ALKALINE PHOSPHATASE 114 U/L (38-126); ANION GAP 7 (5-19); ASPARTATE AMINO TRANSFERASE 15 U/L (14-36); BILIRUBIN,TOTAL 0.8 mg/dL (0.2-1.3); BLOOD UREA NITROGEN 16 mg/dL (7-20); CARBON DIOXIDE 29 mmol/L (22-30); CHLORIDE 102 mmol/L (98-107); CREATINE KINASE 31 U/L (30-135); GLUCOSE 328 mg/dL (75-110); POTASSIUM 3.8 mmol/L (3.6-5.0)
[2019-07-03 02:20] LABS: CREATINE KINASE MB 0.25 ng/mL (<4.55)
[2019-07-03 02:21] LABS: TROPONIN I < 0.012 ng/mL
--- NOTE | 2019-07-03 03:29 | ER Document Report ---
ED General - General Chief Complaint: Leg Swelling Stated Complaint: RIGHT LEG SWOLLEN AND PAIN Time Seen by Provider: 07/03/19 02:47 Primary Care Provider: JOSE ELIAS LOU MD [Primary Care Provider] - Follow up as needed Notes: 54-year-old diabetic female presents emergency department complaining that she lost use of her right leg today. States that she has had a significant increase in pain and that when she tries to stand on her right leg it simply gives out due to pain. Patient states this is really unusual because she has a history of diabetic neuropathy and normally cannot feel her right foot or most of her leg at all. Patient just noticed today that her right great toe was red and swollen. Caty ent complains that for the past 2 days she has been having sweats and chills and fever but no source of infection. Denies chest pain or shortness of breath, denies vomiting. TRAVEL OUTSIDE OF THE [place].S[place] IN LAST 30 DAYS: No - Related Data Allergies/Adverse Reactions: adhesive tape Allergy (Verified 07/03/19 01:09) carvedilol [From Coreg] Allergy (Verified 07/03/19 01:09) Penicillins Allergy (Verified 07/03/19 01:09) Sulfa (Sulfonamide Antibiotics) Allergy (Verified 07/03/19 01:09) Past Medical History - General Information source: Patient - Social History Smoking Status: Current Every Day Smoker Frequency of alcohol use: None Drug Abuse: None Family History: DM Patient has suicidal ideation: No Patient has homicidal ideation: No - Past Medical History Cardiac Medical History: Reports: Hx Hypercholesterolemia, Hx Hypertension Denies: Hx Atrial Fibrillation, Hx Congestive Heart Failure, Hx Coronary Artery Disease, Hx Heart Attack, Hx Peripheral Vascular Disease, Hx Pulmonary Embolism, Hx Heart Murmur Pulmonary Medical History: Reports: Hx Bronchitis, Hx COPD, Hx Pneumonia Denies: Hx Asthma, Hx Respiratory Failure, Hx Sleep Apnea, Hx Tuberculosis Neurological Medical History: Reports: Hx Cerebrovascular Accident - CVA in 1995 (weakness remains L side), Hx Migraine, Hx Seizures. Denies: Hx Parkinson's Disease Endocrine Medical History: Reports: Hx Diabetes Mellitus Type 1, Hx Diabetes Mellitus Type 2. Denies: Hx Graves' Disease, Hx Hyperthyroidism, Hx Hypo thyroidism Renal/ Medical History: Denies: Hx End Stage Renal Disease, Hx Kidney Stones, Hx Ovarian Cysts, Hx Peritoneal Dialysis, Hx Pelvic Inflammatory Disease Malignancy Medical History: Reports: Hx Cervical Cancer. Denies: Hx Breast Cancer, Hx Leukemia, Hx Lung Cancer, Hx Ovarian Cancer GI Medical History: Reports: Hx Gastroesophageal Reflux Disease. Denies: Hx Crohn's Disease, Hx Hiatal Hernia, Hx Irritable Bowel, Hx Liver Failure, Hx Pancreatitis, Hx Ulcer Musculoskeletal Medical History: Reports Hx Arthritis, Denies Hx Fibromyalgia - Been told she should be tested for but never has been, Denies Hx Multiple Sclerosis, Denies Hx Muscular Dystrophy, Denies Hx Systemic Lupus Erythematosus Psychiatric Medical History: Reports: Hx Anxiety, Hx Depression Denies: Hx Bipolar Disorder - told by Dr. Paez she should be diagnosed, Hx Dementia, Hx Post Traumatic Stress Disorder, Hx Schizophrenia Traumatic Medical History: Reports: Hx Fractures - Both legs, R thumb Infectious Medical History: Denies: Hx HIV Past Surgical History: Reports: Hx Appendectomy, Hx Section - x2, Hx Hysterectomy, Hx Orthopedic Surgery - back--L3, 4, 5, Hx Umbilical Hernia, Hx Urinary Tract Surgery - bladder. Denies: Hx Bowel Surgery, Hx Cholecystectomy, Hx Colostomy, Hx Coronary Artery Bypass Graft, Hx Gastric Bypass Surgery, Hx Herniorrhaphy, Hx Mastectomy, Hx Pacemaker, Hx Tonsillectomy, Hx Tubal Ligation - Immunizations Immunizations up to date: Yes Hx Diphtheria, Pertussis, Tetanus Vaccination: Yes Review of Systems - Review of Systems Constitutional: See HPI, Chills, Diaphoresis, Fever Cardiovascular: No symptoms reported Respiratory: No symptoms reported Musculoskeletal: See HPI - Right leg weakness, swelling of the foot and leg. Skin: See HPI Neurological/Psychological: See HPI, Weakness - Weakness though likely secondary due to pain. -: Yes All other systems reviewed and negative Physical Exam - Vital signs Vitals: Temp Pulse Resp BP Pulse Ox 99.9 F 72 20 114/52 L 98 07/02/19 22:21 07/02/19 22:21 07/02/19 22:21 07/02/19 22:21 07/02/19 22:21 Interpretation: Normal - Notes Notes: GENERAL: Alert, interacts well. No acute distress. HEAD: Normocephalic, atraumatic EYES: Pupils equal, round and reactive to light, extraocular movements intact. ENT: Oral mucosa moist, tongue midline. NECK: Full range of motion, supple, trachea midline. LUNGS: Clear to auscultation bilaterally, no wheezes, rales or rhonchi, no respiratory distress. HEART: Regular rate and rhythm, no murmurs, gallops, rubs. ABDOMEN: Soft, nontender, nondistended, bowel sounds present in all 4 quadrants. EXTREMITIES: Moves all 4 extremities spontaneously, 1+ edema to the right leg to mid tibia, radial and dorsalis pedis pulses 2/4 bilaterally. No cyanosis. NEUROLOGICAL: Alert and oriented x3, normal speech, significantly decreased sensation of the bilateral lower extremities, patient can feel the pressure of me squeezing her right great toe to express pus but otherwise cannot feel me touching her foot. Patient is able to range her right leg and foot through full range of motion, no weakness. PSYCH: Normal mood, normal affect. SKIN: Right great toe is red, swollen, hot to the touch, there is thickened skin noted to the plantar aspect of the right great toe near the base consistent with possible plantar wart versus diabetic foot ulcer, small amount of pus is able to be expressed from this by squeezing. Does have a foul odor. Course - Re-evaluation Re-evalutation: 07/03/19 04:48 CBC shows thrombocytopenia with platelets of 121 otherwise unremarkable, d-dimer is elevated but this is likely due to inflammation coming from an acutely infected toe, chemistries reveal elevated glucose at 328, otherwise unremarkable, troponin negative. 07/03/19 04:49 Purulent discharge was able to be expressed from the plantar aspect of the right foot. I then performed an I&D on this area, actually ended up removing a small piece of rock from her foot and there was some purulent drainage around it, wound cultures were sent, some of the hard skin in the area was debrided. Wound did not probe to bone. Patient is started on IV antibiotics in the form of vancomycin and clindamycin as patient is unfortunately allergic to penicillins so I cannot use Zosyn. I am awaiting a phone call back from the hospitalist to admit this diabetic patient with cellulitis and abscess of the right great toe and fevers at home. 07/03/19 05:42 07/03/19 05:[address] Basurto, agrees to accept the patient to his service. Of note patient used to be a patient of Dr. Mccrary'janey but has recently switched to [facility]. - Vital Signs Vital signs: Temp Pulse Resp BP Pulse Ox 99.8 F 95 20 95/61 L 98 07/03/19 02:02 07/03/19 02:02 07/03/19 02:02 07/03/19 02:02 07/03/19 02:02 - Laboratory Result Diagrams: 07/03/19 01:30 07/03/19 01:30 Laboratory results interpreted by me: 07/03/19 07/03/19 07/03/19 01:30 01:30 01:30 Plt Count 121 L D-Dimer 1.20 H Glucose 328 H Total Protein 6.0 L Albumin 3.4 L Procedures - Incision and Drainage Right Toe Great toe Type: Complex, Single Blade size: 11 I&D procedure: Chlorprep applied Incision Method: Incision made by scalpel Amount/type of drainage: Small rock removed, purulent drainage. Notes: 07/03/19 04:51 Small rock removed, there was a small amount of purulent drainage, wound culture was sent. Some of the skin around it was debrided as it was trapping some pus. Patient tolerated procedure well. Discharge - Discharge Clinical Impression: Abscess of great toe, right, Cellulitis of great toe, right Diabetes Qualifiers: Diabetes mellitus type: type 2 Diabetes mellitus penitentiary insulin use: unspecified exterminator insulin use status Diabetes mellitus complication status: with hyperglycemia Qualified Code(s): E11.65 - Type 2 diabetes mellitus with hyperglycemia Condition: Good Disposition: ADMITTED INPATIENT Admitting Provider: Sb (Hospitalist) Unit Admitted: Medical Floor Referrals: JOSE ELIAS LOU MD [Primary Care Provider] - Follow up as needed
[2019-07-03] MEDS ORDERED: VANCOMYCIN HCL INJ 1000 MG VIAL IV ONE (04:01)
[2019-07-03] MEDS ORDERED: CLINDAMYCIN 600 MG/D5W RTU 600 MG/50 ML RTUPB IV ONE (04:01)
[2019-07-03] MEDS ORDERED: INSULIN REG, HUMAN 100 UNIT/ML 3 ML VIAL (PYX) IV ONE (04:47)
[2019-07-03] MEDS ORDERED: MAG HYDROX/AL HYDROX/SIMETH SUSP 30 ML UDCUP PO PRN (06:07)
[2019-07-03] MEDS ORDERED: PROMETHAZINE HCL INJ 25 MG/1 ML VIAL IV PRN (06:07)
[2019-07-03] MEDS ORDERED: MAGNESIUM HYDROXIDE SUSP 30 ML UDCUP PO PRN (06:07)
--- NOTE | 2019-07-03 06:07 | RADIOLOGY REPORT (SQ) ---
EXAM DESCRIPTION: XR FOOT 3 OR MORE VIEWS COMPLETED DATE/TME: 07/03/2019 04:01 CLINICAL HISTORY: 54 years, Female, possible osteo right great toe COMPARISON: None. NUMBER OF VIEWS: 3 TECHNIQUE: 3 views right foot LIMITATIONS: None. FINDINGS: Osteopenia. Diffuse soft tissue swelling. Soft tissue ulceration is seen on the plantar aspect of the great toe on the lateral view. No underlying acute osseous abnormality. No soft tissue gas. Calcaneal spurs IMPRESSION: Plantar soft tissue ulceration of the great toe. No acute osseous abnormality copyright 2010 [employer]- All Rights Reserved
[2019-07-03] MEDS ORDERED: MORPHINE SULFATE 10 MG/ML INJ IV PRN ×3 (06:10)
[2019-07-03] MEDS ORDERED: HYDRALAZINE HCL INJ/PF 20 MG/1 ML SDV IV PRN (06:10)
[2019-07-03] MEDS ORDERED: ACETAMINOPHEN 325 MG TABLET PO PRN (06:10)
[2019-07-03] MEDS ORDERED: LORAZEPAM INJ 2 MG/1 ML VIAL IV PRN (06:10)
[2019-07-03] MEDS ORDERED: NICOTINE 21 MG/24 HR PATCH.TD24 TD PRN (06:10)
[2019-07-03] MEDS ORDERED: DEXTROSE 50%-WATER 25 GM/50 ML DISP.SYRIN IV PRN ×2 (06:11)
[2019-07-03] MEDS ORDERED: DEXTROSE 40% GEL 15 GM TUBE PO PRN ×2 (06:11)
[2019-07-03] MEDS ORDERED: GLUCAGON,HUMAN RECOMB 1 MG INJ IM PRN (06:11)
[2019-07-03] MEDS ORDERED: VANCOMYCIN HCL INJ 1000 MG VIAL IV SCH (06:15)
[2019-07-03] MEDS ORDERED: AZTREONAM 1.5 GM in DEXTROSE 5%-WATER 100 ML IV ONE (07:00)
--- NOTE | 2019-07-03 07:08 | PDOC H&P ---
History of Present Illness Admission Date/PCP: 07/03/2019 05:51 JOSE ELIAS LOU MD Patient complains of: Right leg pain History of Present Illness: MARCELLUS GUILLERMO is a 54 year old female with acute right leg pain. She admits that she developed generalized, deep aching right leg pain on 07/02/2019 that is severe and prevents her from trying to bear weight due to increased pain. She further admits an accompanying red swollen right great toe, noted when she was checking her leg. She has a chronic diabetic neuropathy involving the right lower extremity which causes her to have essentially no sensation in the leg. She also acknowledges an associated subjective fever and chills over the last 2 days. She denies other accompanying or associated signs and symptoms. She denies prior similar episodes. She has not identified any additional aggravating or ameliorating factors for her right leg pain. In the emergency room she was found to have a fever with a red swollen and tender right great toe foot and lower leg. Her white blood count was normal but she was noted to have an open ulcer on the plantar aspect of the right great toe from which a foreign body (pebble) was removed by the emergency room physician. Patient was subsequently admitted to the hospital for further evaluation treatment. Past Medical History Cardiac Medical History: Reports: Hyperlipidema, Hypertension Denies: Atrial Fibrillation, Congestive Heart Failure, Coronary Artery Disease, Myocardial Infarction, Peripheral Vascular Disease, Pulmonary Embolism, Heart Murmur Pulmonary Medical History: Reports: Bronchitis, Chronic Obstructive Pulmonary Disease (COPD), Pneumonia Denies: Asthma, Respiratory Failure, Sleep Apnea, Tuberculosis EENT Medical History: Denies: Cataracts, Ears - Hearing aids Neurological Medical History: Reports: Migraine, Seizures, Other - Diabetic peripheral neuropathy Denies: Hemorrhagic CVA, Ischemic CVA Endocrine Medical History: Reports: Diabetes Mellitus Type 2 Denies: Diabetes Mellitus Type 1, Hyperthyroidism, Hypothyroidism Renal/ Medical History: Denies: Chronic Kidney Disease, Nephrolithiasis Malignancy Medical History: Reports: Cervical Cancer GI Medical History: Reports: Gastroesophageal Reflux Disease Denies: Cirrhosis, Crohn's Disease, Hepatitis, Hiatal Hernia, Ulcerative Colitis Musculoskeltal Medical History: Reports: Arthritis Denies: Fibromyalgia, Gout Skin Medical History: Denies: Eczema, Psoriasis Psychiatric Medical History: Reports: Bipolar Disorder, Depression Denies: Alcohol Dependency, Substance Abuse, Tobacco Dependency Traumatic Medical History: Reports: None Hematology: Denies: Anemia, Bleeding Tendencies Infectious Medical History: Reports: None Past Surgical History Past Surgical History: Reports: Appendectomy, Section - x2, Cholecystectomy, Hysterectomy, Orthopedic Surgery - back--L3, 4, 5 Social History Information Source: Patient Lives with: Family Smoking Status: Current Every Day Smoker Electronic Cigarette use?: No Frequency of Alcohol Use: None Hx Recreational Drug Use: No Drugs: None Hx Prescription Drug Abuse: No - Advance Directive Resuscitation Status: Full Code Surrogate healthcare decision maker:: Marleny Case Family History Family History: DM, Hypertension. denies: CAD, Malignancy Parental Family History Reviewed: Yes Children Family History Reviewed: No Sibling(s) Family History Reviewed.: Yes Medication/Allergy Home Medications: Fluticasone Propionate [Flonase Nasal [place] 50 Mcg/[place] 16 gm] 1 spray NASL DAILY 06/07/19 Gabapentin [Neurontin 400 mg Capsule] 400 mg PO BID 06/07/19 Lorazepam [Ativan 0.5 mg Tablet] 0.5 mg PO Q12HP PRN 06/07/19 Meloxicam [Mobic] 15 mg PO DAILY 06/07/19 Spironolactone [Aldactone 100 mg Tablet] 1 tab PO DAILY 06/07/19 Allergies/Adverse Reactions: adhesive tape Allergy (Verified 07/03/19 01:09) carvedilol [From Coreg] Allergy (Verified 07/03/19 01:09) Penicillins Allergy (Verified 07/03/19 01:09) Sulfa (Sulfonamide Antibiotics) Allergy (Verified 07/03/19 01:09) Review of Systems Constitutional: PRESENT: as per HPI, chills, fever(s) Eyes: ABSENT: visual disturbances, other - Eye pain Ears: ABSENT: hearing changes, other - Ear pain Nose, Mouth, and Throat: ABSENT: headache(s), mouth pain, sore throat Cardiovascular: ABSENT: chest pain, palpitations Respiratory: ABSENT: cough, dyspnea Gastrointestinal: ABSENT: abdominal pain, constipation, diarrhea, nausea, vomiting Genitourinary: ABSENT: dysuria, hematuria Musculoskeletal: ABSENT: back pain, joint swelling Integumentary: PRESENT: as per HPI, erythema - Right great toe foot and lower leg. ABSENT: pruritus, rash Neurological: ABSENT: confusion, convulsions, focal weakness, memory loss, syncope Psychiatric: ABSENT: anxiety, depression Endocrine: ABSENT: cold intolerance, heat intolerance, polydipsia, polyphagia, polyuria Hematologic/Lymphatic: ABSENT: easy bleeding, easy bruising Allergic/Immunologic: ABSENT: seasonal rhinorrhea Physical Exam Vital Signs: Temp Pulse Resp BP Pulse Ox 99.8 F 95 20 95/61 L 98 07/03/19 02:02 07/03/19 02:02 07/03/19 02:02 07/03/19 02:02 07/03/19 02:02 Intake & Output 07/01/19 07/02/19 07/03/19 23:59 23:59 23:59 Weight 104.326 kg General appearance: PRESENT: no acute distress, cooperative Head exam: PRESENT: atraumatic, normocephalic Eye exam: PRESENT: conjunctiva pink. ABSENT: conjunctival injection, scleral icterus Ear exam: PRESENT: normal external ear exam. ABSENT: bleeding, drainage Mouth exam: PRESENT: dry mucosa, neck supple Neck exam: ABSENT: thyromegaly, tracheal deviation Respiratory exam: PRESENT: clear to auscultation aniket, symmetrical, unlabored Cardiovascular exam: PRESENT: RRR. ABSENT: clicks, gallop, rubs Pulses: PRESENT: normal carotid pulses, normal radial pulses Vascular exam: PRESENT: normal capillary refill. ABSENT: pallor GI/Abdominal exam: PRESENT: normal bowel sounds, soft Rectal exam: PRESENT: deferred Extremities exam: PRESENT: pedal edema - Right foot with moderate edema and erythema, tenderness - Right foot and lower extremity. ABSENT: joint swelling Musculoskeletal exam: ABSENT: deformity, dislocation Neurological exam: PRESENT: alert, oriented to person, oriented to place, oriented to time, oriented to situation, CN II-XII grossly intact, motor sensory deficit - Marked decreased tactile sensation in the bilateral lower extremities Psychiatric exam: PRESENT: appropriate affect, normal mood Skin exam: PRESENT: dry, erythema - Erythema edema and plantar surface ulceration of the right great toe with extended erythema and edema into the right foot and lower leg., warm. ABSENT: jaundice, rash, urticaria Results Laboratory Results: 07/03/19 01:30 07/03/19 01:30 07/03/19 07/03/19 01:30 01:30 WBC 8.5 RBC 4.32 Hgb 13.5 Hct 39.2 MCV 91 MCH 31.2 MCHC 34.4 RDW 13.0 Plt Count 121 L Seg Neutrophils % 57.0 Sodium 137.9 Potassium 3.8 Chloride 102 Carbon Dioxide 29 Anion Gap 7 BUN 16 Creatinine 0.65 Est GFR ( Amer) > 60 Glucose 328 H Calcium 9.0 Total Bilirubin 0.8 AST 15 Alkaline Phosphatase 114 Total Protein 6.0 L Albumin 3.4 L 07/03/19 07/03/19 07/03/19 01:30 01:30 04:40 Creatine Kinase 31 CK-MB (CK-2) 0.25 Troponin I < 0.012 < 0.012 Assessment and Plan - Diagnosis (1) Abscess of great toe, right Is this a current diagnosis for this admission?: Yes (2) Cellulitis of toe of right foot Is this a current diagnosis for this admission?: Yes (3) Diabetes mellitus type 2 in obese Is this a current diagnosis for this admission?: Yes (4) Diabetes mellitus type 2 with neurological manifestations Is this a current diagnosis for this admission?: Yes (5) Hypertension Qualifiers: Hypertension type: essential hypertension Qualified Code(s): I10 - Essential (primary) hypertension Is this a current diagnosis for this admission?: Yes (6) Hyperlipidemia Qualifiers: Hyperlipidemia type: unspecified Qualified Code(s): E78.5 - Hyperlipidemia, unspecified Is this a current diagnosis for this admission?: Yes (7) COPD (chronic obstructive pulmonary disease) Qualifiers: COPD type: unspecified COPD Qualified Code(s): J44.9 - Chronic obstructive pulmonary disease, unspecified Is this a current diagnosis for this admission?: Yes (8) GERD (gastroesophageal reflux disease) Qualifiers: Esophagitis presence: esophagitis presence not specified Qualified Code(s): K21.9 - Gastro-esophageal reflux disease without esophagitis Is this a current diagnosis for this admission?: Yes (9) Morbid obesity Is this a current diagnosis for this admission?: Yes (10) Tobacco use disorder, severe, dependence Is this a current diagnosis for this admission?: Yes - Plan Summary Summary: Patient will be admitted to the medical floor where she will receive routine supportive and symptomatic cares. She will be treated with IV antibiotics utilizing vancomycin, levofloxacin and aztreonam. She will use morphine sulfate 2 to 4 mg IV every 2 hours on as-needed basis for control of her pain. Before meals and at bedtime Accu-Cheks will be obtained with sliding scale insulin for hyperglycemia and a hypoglycemic protocol in place. Patient will be continued on her usual medications once her med list has been verified and reconciled. Routine laboratories including a CBC, metabolic profile and magnesium levels will be obtained on a serial basis as needed. Hemoglobin A1c, lipid profile and thyroid stimulating hormone level will be obtained. Smoking cessation is advised and counseled briefly at the bedside. - Time Time Spent with patient: 25-34 minutes Smoking Cessation Education: 3 to 10 minutes Medications reviewed and adjusted accordingly: Yes - Inpatient Certification Based on my medical assessment, after consideration of the patient's comorbidities, presenting symptoms, or acuity I expect that the services needed warrant INPATIENT care.: Yes I certify that my determination is in accordance with my understanding of Medicare's requirements for reasonable and necessary INPATIENT services [42 CFR 412.3e].: Yes Medical Necessity: Significant Comorbidiites Make Outpatient Treatment Too Risky , Need Close Monitoring Due to Risk of Patient Decompensation, Need for Pain Control, Need for IV Antibiotics
[2019-07-03] MEDS: INSULIN REG, HUMAN 100 UNIT/ML 3 ML VIAL (PYX) SUBCUT SCH ×4 (08:47→21:16)
[2019-07-03] MEDS: AZTREONAM 1.5 GM in DEXTROSE 5%-WATER 100 ML IV SCH ×2 (10:38→17:37)
[2019-07-03] MEDS: LEVOFLOXACIN 750 MG/D5W RTU 750 MG/150 ML RTUPB IV SCH (11:00)
[2019-07-03] MEDS: DOCUSATE SODIUM 100 MG CAPSULE PO SCH ×2 (11:03→17:38)
[2019-07-03] MEDS: FAMOTIDINE 20 MG TABLET PO SCH ×2 (11:03→21:15)
[2019-07-03] MEDS ORDERED: TIZANIDINE HCL 4 MG TABLET PO PRN (11:57)
[2019-07-03] MEDS ORDERED: (PENDING PHARMACY ID) (Bupropion Hcl [Bupropion Xl] 300 MG) PO SCH (12:00)
--- NOTE | 2019-07-03 12:28 | Progress Note ---
Provider Note Provider Note: 07/03/2019 Patient seen briefly still in the emergency room 1215. I have reconciled patient's home meds Also I have ordered a CT scan of the right foot looking for osteomyelitis Continue antibiotics Patient does not appear to be septic. Patient states she lives at home with a friend and is unemployed Patient states she goes to the [facility]
[2019-07-03] MEDS: FUROSEMIDE 20 MG TABLET PO SCH ×2 (13:18→17:38)
[2019-07-03] MEDS: GABAPENTIN 300 MG CAPSULE PO SCH ×2 (13:20→21:15)
[2019-07-03] MEDS: PRIMIDONE 50 MG TABLET PO SCH (13:21)
[2019-07-03] MEDS ORDERED: AZTREONAM INJ 1 GM VIAL IV SCH (14:00)
[2019-07-03] MEDS ORDERED: AZTREONAM 1.5 GM in DEXTROSE 5%-WATER 100 ML IV SCH (14:00)
[2019-07-03] MEDS: HEPARIN SOD (PORCINE) 5,000 UNIT/ML 1 ML VIAL SUBCUT SCH ×2 (14:16→21:04)
[2019-07-03] MEDS: INSULIN GLARGINE,HUM.REC.ANLOG 1,000 UNIT/10 ML VIAL SUBCUT SCH ×2 (14:17→21:16)
--- NOTE | 2019-07-03 15:30 | RADIOLOGY REPORT (SQ) ---
EXAM DESCRIPTION: CT RT LOWER EXTREMITY WITHOUT COMPLETED DATE/TIME: 07/03/2019 1:13 pm REASON FOR STUDY: right foot osteo, 1st toe COMPARISON: Recent radiographs. TECHNIQUE: Axial imaging performed through the right ankle and foot with reformatted coronal and sag ittal imaging windowed for bone and soft tissues. Images saved to PACS. 3D IMAGING: Were 3D images as MIP, SSD, or volume rendering performed at the work station? No All CT scanners at this facility use dose modulation, iterative reconstruction, and/or weight based d osing when appropriate to reduce radiation dose to as low as reasonably achievable (ALARA). [facility]: Dose Right [facility]: CareDose [facility]: Dose Right [facility]: Teradose 4D [facility]: Smart Technologies LIMITATIONS: None. RADIATION DOSE: CT Rad equipment meets quality standard of care and radiation dose reduction techniq ues were employed. CTDIvol: 4.1 mGy. DLP: 98 mGy-cm. mGy. FINDINGS: SOFT TISSUES: Subcutaneous edema about the ankle and tracking over the dorsal foot. No dr ainable collections. No suggestion of significant joint effusion. No large skin wounds detected, sl ight irregularity along the plantar aspect of the great toe may reflect the region of interest. BONES: No bone destruction identified. No fracture. Sclerosis in the sesamoids may reflect sesamoid itis. MINERALIZATION: Normal. OTHER: No other significant finding. IMPRESSION: No CT evidence of osteomyelitis. Findings as above. 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
[2019-07-03] MEDS: INSULIN LISPRO 100 UNIT/ML 3 ML VIAL SUBCUT SCH (16:49)
[2019-07-03] MEDS: VANCOMYCIN HCL 1,500 MG in DEXTROSE 5%-WATER 250 ML IV SCH (17:38)
[2019-07-03] MEDS: BUPROPION HCL 75 MG TABLET PO SCH (17:38)
[2019-07-03] MEDS ORDERED: PRIMIDONE 50 MG TABLET PO SCH (18:00)
[2019-07-03] MEDS ORDERED: DULOXETINE HCL 30 MG CAPSULE.DR PO SCH (22:00)
[2019-07-04] MEDS: AZTREONAM 1.5 GM in DEXTROSE 5%-WATER 100 ML IV SCH ×2 (02:00→09:21)
[2019-07-04] MEDS: OXYCODONE HCL IR 5 MG TABLET PO PRN ×2 (03:09→08:03)
[2019-07-04] MEDS: HEPARIN SOD (PORCINE) 5,000 UNIT/ML 1 ML VIAL SUBCUT SCH (06:14)
[2019-07-04] MEDS: VANCOMYCIN HCL 1,500 MG in DEXTROSE 5%-WATER 250 ML IV SCH (06:34)
[2019-07-04 06:55] LABS: HEMATOCRIT 38.4 % (36.0-47.0); HEMOGLOBIN 13.3 g/dL (12.0-15.5); MEAN CORPUSCULAR HGB CONC 34.8 g/dL (32.0-36.0); MEAN CORPUSCULAR VOLUME 89 fl (80-97); PLATELET COUNT 118 10^3/uL (150-450); RED BLOOD COUNT 4.31 10^6/uL (3.72-5.28); RED CELL DISTRIBUTION WIDTH 12.6 % (11.5-14.0); WHITE BLOOD COUNT 6.6 10^3/uL (4.0-10.5)
[2019-07-04 07:27] LABS: ANION GAP 8 (5-19); BLOOD UREA NITROGEN 15 mg/dL (7-20); CALCIUM 9.1 mg/dL (8.4-10.2); CARBON DIOXIDE 27 mmol/L (22-30); CHLORIDE 104 mmol/L (98-107); CHOLESTEROL 172.47 mg/dL (0-200); GLUCOSE 263 mg/dL (75-110); POTASSIUM 4.7 mmol/L (3.6-5.0); TRIGLYCERIDES 191 mg/dL (<150)
[2019-07-04] MEDS ORDERED: PROMETHAZINE HCL INJ 25 MG/1 ML VIAL IV PRN (07:30)
[2019-07-04 07:37] LABS: DIRECT LDL 115 mg/dL (<100)
[2019-07-04] MEDS: INSULIN LISPRO 100 UNIT/ML 3 ML VIAL SUBCUT SCH ×2 (07:38→11:20)
[2019-07-04] MEDS: INSULIN REG, HUMAN 100 UNIT/ML 3 ML VIAL (PYX) SUBCUT SCH ×2 (07:39→11:21)
[2019-07-04 07:43] LABS: VLDL CHOLESTEROL 38.2 mg/dL (10-31)
[2019-07-04] MEDS: PRIMIDONE 50 MG TABLET PO SCH (08:03)
[2019-07-04] MEDS: LEVOFLOXACIN 750 MG/D5W RTU 750 MG/150 ML RTUPB IV SCH (09:21)
[2019-07-04] MEDS: FAMOTIDINE 20 MG TABLET PO SCH (09:30)
[2019-07-04] MEDS: FUROSEMIDE 20 MG TABLET PO SCH (09:30)
[2019-07-04] MEDS: DOCUSATE SODIUM 100 MG CAPSULE PO SCH (09:30)
[2019-07-04] MEDS: GABAPENTIN 300 MG CAPSULE PO SCH (09:30)
[2019-07-04] MEDS: BUPROPION HCL 75 MG TABLET PO SCH (09:31)
[2019-07-04] MEDS: INSULIN GLARGINE,HUM.REC.ANLOG 1,000 UNIT/10 ML VIAL SUBCUT SCH (09:52)
[2019-07-04] MEDS ORDERED: POTASSIUM CHLORIDE 10 MEQ TABLET.ER PO SCH (10:00)
[2019-07-04] MEDS ORDERED: CLINDAMYCIN HCL 150 MG CAPSULE PO ONE (11:33)
[2019-07-04 12:09] VITALS: BP 95/61
--- NOTE | 2019-07-16 15:15 | PDOC DISCHARGE SUMMARY ---
Impression - Admit/DC Date/PCP Admission Date/Primary Care Provider: 07/03/19 05:48 JOSE ELIAS LOU MD Discharge Date: 07/04/19 - Assessment Summary: Patient will be admitted to the medical floor where she will receive routine supportive and symptomatic cares. She will be treated with IV antibiotics utilizing vancomycin, levofloxacin and aztreonam. She will use morphine sulfate 2 to 4 mg IV every 2 hours on as-needed basis for control of her pain. Before meals and at bedtime Accu-Cheks will be obtained with sliding scale insulin for hyperglycemia and a hypoglycemic protocol in place. Patient will be continued on her usual medications once her med list has been verified and reconciled. Routine laboratories including a CBC, metabolic profile and magnesium levels will be obtained on a serial basis as needed. Hemoglobin A1c, lipid profile and thyroid stimulating hormone level will be obtained. Smoking cessation is advised and counseled briefly at the bedside. 07/04/2019 Patient had an family emergency and wanted to be discharged home from the hospital today Patient's blood cultures have showed no growth in 5 days Wound culture showed mostly Streptococcus bacteria Patient's white count was normal x2 occasions Patient did have elevated cholesterol and triglyceride levels, as well as glucose levels X-rays of the right great toe and foot showed ulceration of the great toe but no acute osseous abnormality Patient also had a CT scan of the right foot that showed no evidence of osteomyelitis She was discharged on clindamycin 600 mg every 8 hours for 10 days as well as NicoDerm patch Patient is to follow-up at the [facility] Patient seems satisfied with her admission and once again was asking to be discharged home due to family emergency - Additional Information Resuscitation Status: Full Code Discharge Diet: Diabetic Discharge Activity: Balance Activity w/Rest, Keep Legs Elevated Referrals: [facility] [Provider Group] - 07/11/19 10:00 am Prescriptions: Clindamycin HCl 600 mg PO Q8 10 Days #60 capsule Nicotine [Nicoderm 21 mg/24 Hr Transderm Patch] 1 each TD DAILYP PRN 30 Days #30 patch.td24 PRN Reason: Home Medications: Bupropion HCl [Bupropion Xl] 300 mg PO DAILY 07/03/19 Duloxetine HCl [Cymbalta 30 mg Capsule.dr] 90 mg PO QHS 07/03/19 Furosemide [Lasix 20 mg Tablet] 20 mg PO BID 07/03/19 Gabapentin [Neurontin 300 mg Capsule] 900 mg PO Q12 07/03/19 Insulin Glargine,Hum.rec.anlog [Lantus Insulin 100 Unit/1 ml 10 ml] 45 units SQ Q12 07/03/19 Insulin Lispro [Humalog Insulin (Lispro) 100 unit/mL] 25 units SQ AC 07/03/19 Potassium Chloride [Klor-Con 10 Meq Tablet ER] 20 meq PO DAILY 07/03/19 Primidone [Mysoline 50 mg Tablet] 50 mg PO QAM 07/03/19 Primidone [Mysoline 50 mg Tablet] 100 mg PO QPM 07/03/19 Tizanidine HCl [Zanaflex 4 mg Tablet] 4 mg PO Q8HP PRN 07/03/19 Acetaminophen [Tylenol 325 mg Tablet] 650 mg PO Q4HP PRN tablet 07/04/19 Clindamycin HCl 600 mg PO Q8 10 Days #60 capsule 07/04/19 Docusate Sodium [Colace 100 mg Capsule] 100 mg PO BID capsule 07/04/19 Nicotine [Nicoderm 21 mg/24 Hr Transderm Patch] 1 each TD DAILYP PRN 30 Days #30 patch.td24 07/04/19 History of Present Illiness History of Present Illness: MARCELLUS GUILLERMO is a 54 year old female Physical Exam Vital Signs: Temp Pulse Resp BP Pulse Ox 98.4 F 72 18 95/61 L 98 07/04/19 12:07 07/04/19 12:07 07/04/19 12:07 07/04/19 12:07 07/04/19 12:07 Results Laboratory Results: WBC 6.6 10^3/uL (4.0-10.5) 07/04/19 06:44 RBC 4.31 10^6/uL (3.72-5.28) 07/04/19 06:44 Hgb 13.3 g/dL (12.0-15.5) 07/04/19 06:44 Hct 38.4 % (36.0-47.0) 07/04/19 06:44 MCV 89 fl (80-97) 07/04/19 06:44 MCH 31.0 pg (27.0-33.4) 07/04/19 06:44 MCHC 34.8 g/dL (32.0-36.0) 07/04/19 06:44 RDW 12.6 % (11.5-14.0) 07/04/19 06:44 Plt Count 118 10^3/uL (150-450) L 07/04/19 06:44 Lymph % (Auto) 35.6 % (13-45) 07/03/19 01:30 [place] % (Auto) 5.6 % (3-13) 07/03/19 01:30 Eos % (Auto) 1.3 % (0-6) 07/03/19 01:30 Baso % (Auto) 0.5 % (0-2) 07/03/19 01:30 Absolute Neuts (auto) 4.8 10^3/uL (1.7-8.2) 07/03/19 01:30 Absolute Lymphs (auto) 3.0 10^3/uL (0.5-4.7) 07/03/19 01:30 Absolute Monos (auto) 0.5 10^3/uL (0.1-1.4) 07/03/19 01:30 Absolute Eos (auto) 0.1 10^3/uL (0.0-0.6) 07/03/19 01:30 Absolute Basos (auto) 0.0 10^3/uL (0.0-0.2) 07/03/19 01:30 Seg Neutrophils % 57.0 % (42-78) 07/03/19 01:30 PT 14.1 SEC (11.4-15.4) 07/03/19 01:30 INR 1.09 07/03/19 01:30 D-Dimer 1.20 ug/mL (0.00-0.50) H 07/03/19 01:30 Sodium 138.9 mmol/L (137-145) 07/04/19 06:44 Potassium 4.7 mmol/L (3.6-5.0) 07/04/19 06:44 Chloride 104 mmol/L (98-107) 07/04/19 06:44 Carbon Dioxide 27 mmol/L (22-30) 07/04/19 06:44 Anion Gap 8 (5-19) 07/04/19 06:44 BUN 15 mg/dL (7-20) 07/04/19 06:44 Creatinine 0.59 mg/dL (0.52-1.25) 07/04/19 06:44 Est GFR ( Amer) > 60 (>60) 07/04/19 06:44 Est GFR (MDRD) Non-Af > 60 (>60) 07/04/19 06:44 Glucose 263 mg/dL (75-110) H 07/04/19 06:44 POC Glucose 309 mg/dL (70-110) H 07/04/19 11:10 Hemoglobin A1c % 11.4 % (4.7-6.0) H 07/04/19 06:44 Calcium 9.1 mg/dL (8.4-10.2) 07/04/19 06:44 Magnesium 1.9 mg/dL (1.6-2.3) 07/04/19 06:44 Total Bilirubin 0.8 mg/dL (0.2-1.3) 07/03/19 01:30 Direct Bilirubin 0.0 mg/dL (0.0-0.4) 07/03/19 01:30 Neonat Total Bilirubin Not Reportable 07/03/19 01:30 Neonat Direct Bilirubin Not Reportable 07/03/19 01:30 Neonat Indirect Bili Not Reportable 07/03/19 01:30 AST 15 U/L (14-36) 07/03/19 01:30 ALT 14 U/L (<35) 07/03/19 01:30 Alkaline Phosphatase 114 U/L (38-126) 07/03/19 01:30 Creatine Kinase 31 U/L (30-135) 07/03/19 01:30 CK-MB (CK-2) 0.25 ng/mL (<4.55) 07/03/19 01:30 Troponin I < 0.012 ng/mL 07/03/19 04:40 Total Protein 6.0 g/dL (6.3-8.2) L 07/03/19 01:30 Albumin 3.4 g/dL (3.5-5.0) L 07/03/19 01:30 Triglycerides 191 mg/dL (<150) H 07/04/19 06:44 Cholesterol 172.47 mg/dL (0-200) 07/04/19 06:44 LDL Cholesterol Direct 115 mg/dL (<100) H 07/04/19 06:44 VLDL Cholesterol 38.2 mg/dL (10-31) H 07/04/19 06:44 HDL Cholesterol 34 mg/dL (>40) L 07/04/19 06:44 TSH 0.65 uIU/mL (0.47-4.68) 07/04/19 06:44 07/03/19 07/03/19 01:30 04:40 CK-MB (CK-2) 0.25 Troponin I < 0.012 < 0.012 Impressions: Lower Extremity CT 07/03/19 00:00 IMPRESSION: No CT evidence of osteomyelitis. Findings as above. Foot X-Ray 07/03/19 04:01 IMPRESSION: Plantar soft tissue ulceration of the great toe. No acute osseous abnormality copyright 2010 [facility] [employer]- All Rights Reserved Stroke Is this a Stroke Patient?: No Acute Heart Failure - Is this a Heart Failure Patient?: No
== END 2019-07-04 13:22 | disposition home or self-care (01) | DRG 638 ==
LOC: ER 22:06 → EH 07-03 05:48 → 4N 07-03 14:37
PROVIDERS: ADMIT Emergency Medicine; ATTEND Emergency Medicine
PROC: 0JCQ3ZZ Extirpation of Matter from Right Foot Subcutaneous Tissue and Fascia, Percutaneous Approach (ICD-10-PCS; principal; 2019-07-03)
DX: E11.621 Type 2 diabetes mellitus with foot ulcer (principal); L02.611 Cutaneous abscess of right foot; L97.518 Non-pressure chronic ulcer of other part of right foot with other specified severity; I69.354 Hemiplegia and hemiparesis following cerebral infarction affecting left non-dominant side; D69.6 Thrombocytopenia, unspecified; E11.40 Type 2 diabetes mellitus with diabetic neuropathy, unspecified; L03.031 Cellulitis of right toe; E11.65 Type 2 diabetes mellitus with hyperglycemia; I10 Essential (primary) hypertension; B95.5 Unspecified streptococcus as the cause of diseases classified elsewhere; E78.5 Hyperlipidemia, unspecified; J44.9 Chronic obstructive pulmonary disease, unspecified; M19.90 Unspecified osteoarthritis, unspecified site; F31.9 Bipolar disorder, unspecified; F32.9 Major depressive disorder, single episode, unspecified; K21.9 Gastro-esophageal reflux disease without esophagitis; E66.01 Morbid (severe) obesity due to excess calories; F17.200 Nicotine dependence, unspecified, uncomplicated; Z71.6 Tobacco abuse counseling; Z79.4 Long term (current) use of insulin; Z88.0 Allergy status to penicillin; Z88.2 Allergy status to sulfonamides; Z88.8 Allergy status to other drugs, medicaments and biological substances; Z91.048 Other nonmedicinal substance allergy status; Z85.41 Personal history of malignant neoplasm of cervix uteri; Z83.3 Family history of diabetes mellitus; Z82.49 Family history of ischemic heart disease and other diseases of the circulatory system; Z80.9 Family history of malignant neoplasm, unspecified
CPT/HCPCS: 36415; 80048; 80053; 80061; 82550; 82553; 82962; 83036; 83735; 84443; 84484; 85025; 85027; 85379; 85610; 87040; 87070; 87075; 87077; 87186; 87205; 96365; 96368; 99285; J1644; J1815; J1956; J2270; J3370; J3490; J7060

== ENCOUNTER 2019-12-29 22:13 | Emergency (ER) | payer MEDICAID ==
[2019-12-29 22:31] VITALS: BP 128/93
--- NOTE | 2019-12-29 22:38 | ER Document Report ---
ED Medical Screen (RME) - General Chief Complaint: High Blood Sugar Stated Complaint: BLOOD SUGAR ISSUES Time Seen by Provider: 12/29/19 22:23 Primary Care Provider: JOSE ELIAS LOU MD [Primary Care Provider] - Follow up as needed Mode of Arrival: Wheelchair Information source: Patient Notes: HPI; 54-year-old female past medical history significant for diabetes and hyperlipidemia presents emergency room via EMS complaining of nausea, vomiting, belching, and abdominal pain. States her symptoms started 4 days ago describes the pain as midepigastric and pressure. Has been taking her antiemetics at home without relief. Blood sugar on arrival by EMS was greater than 300 blood sugar in the ER 212. Patient was given IV fluids and Zofran by EMS prior to arrival. Denies any fevers. No shortness of breath, no difficulty breathing. No recent travel. No COVID-19 exposure. PE: Alert and oriented x3. Mild distress noted. Lungs with scattered rhonchi no wheezes no rales. Heart: Regular rate rhythm without murmurs, rubs, gallops. Unable to do full assessment in triage. I have greeted and performed a rapid initial assessment of this patient. A com prehensive ED assessment and evaluation of the patient, analysis of test results and completion of the medical decision making process will be conducted by additional ED providers. I have specifically instructed the patient or family members with the patient to immediately return to any nursing staff should anything change in the patient's condition or with their chief complaint. TRAVEL OUTSIDE OF THE [place] IN LAST 30 DAYS: No - Related Data Allergies/Adverse Reactions: adhesive tape Allergy (Verified 07/03/19 01:09) carvedilol [From Coreg] Allergy (Verified 07/03/19 01:09) Penicillins Allergy (Verified 07/03/19 01:09) Sulfa (Sulfonamide Antibiotics) Allergy (Verified 07/03/19 01:09) Past Medical History - Past Medical History Cardiac Medical History: Reports: Hx Hypercholesterolemia, Hx Hypertension Denies: Hx Atrial Fibrillation, Hx Congestive Heart Failure, Hx Coronary Artery Disease, Hx Heart Attack, Hx Peripheral Vascular Disease, Hx Pulmonary Embolism, Hx Heart Murmur Pulmonary Medical History: Reports: Hx Bronchitis, Hx COPD, Hx Pneumonia Denies: Hx Asthma, Hx Respiratory Failure, Hx Sleep Apnea, Hx Tuberculosis Neurological Medical History: Reports: Hx Cerebrovascular Accident - CVA in 1995 (weakness remains L side), Hx Migraine, Hx Seizures. Denies: Hx Parkinson's Disease Endocrine Medical History: Reports: Hx Diabetes Mellitus Type 2. Denies: Hx Diabetes Mellitus Type 1, Hx Graves' Disease, Hx Hyperthyroidism, Hx Hypothyroidism Renal/ Medical History: Denies: Hx End Stage Renal Disease, Hx Kidney Stones, Hx Ovarian Cysts, Hx Peritoneal Dialysis, Hx Pelvic Inflammatory Disease Malignancy Medical History: Reports: Hx Cervical Cancer. Denies: Hx Breast Cancer, Hx Leukemia, Hx Lung Cancer, Hx Ovarian Cancer GI Medical History: Reports: Hx Gastroesophageal Reflux Disease. Denies: Hx Cirrhosis, Hx Crohn's Disease, Hx Hepatitis, Hx Hiatal Hernia, Hx Irritable Titus el, Hx Liver Failure, Hx Pancreatitis, Hx Ulcer, Hx Ulcerative Colitis Musculoskeltal Medical History: Reports Hx Arthritis, Denies Hx Fibromyalgia, Denies Hx Gout, Denies Hx Multiple Sclerosis, Denies Hx Muscular Dystrophy, Denies Hx Systemic Lupus Erythematosus Skin Medical History: Denies Hx Eczema, Denies Hx Psoriasis Psychiatric Medical History: Reports: Hx Anxiety, Hx Bipolar Disorder, Hx Depression Denies: Hx Dementia, Hx Post Traumatic Stress Disorder, Hx Schizophrenia Traumatic Medical History: Reports: Hx Fractures - Both legs, R thumb Infectious Medical History: Denies: Hx Hepatitis, Hx HIV Past Surgical History: Reports: Hx Appendectomy, Hx Section - x2, Hx Cholecystectomy, Hx Hysterectomy, Hx Orthopedic Surgery - back--L3, 4, 5, Hx Umbilical Hernia, Hx Urinary Tract Surgery - bladder. Denies: Hx Bowel Surgery, Hx Colostomy, Hx Coronary Artery Bypass Graft, Hx Gastric Bypass Surgery, Hx Herniorrhaphy, Hx Mastectomy, Hx Pacemaker, Hx Tonsillectomy, Hx Tubal Ligation - Immunizations Immunizations up to date: Yes Hx Diphtheria, Pertussis, Tetanus Vaccination: Yes Physical Exam - Vital signs Vitals: Temp Pulse Resp BP Pulse Ox 98.1 F 103 H 20 128/93 H 100 12/29/19 22:25 12/29/19 22:25 12/29/19 22:25 12/29/19 22:25 12/29/19 22:25 Course - Vital Signs Vital signs: Temp Pulse Resp BP Pulse Ox 98.1 F 103 H 20 128/93 H 100 12/29/19 22:25 12/29/19 22:25 12/29/19 22:25 12/29/19 22:25 12/29/19 22:25 - Laboratory Laboratory results interpreted by me: 12/29/19 22:23 POC Glucose 212 H Doctor's Discharge - Discharge Referrals: JOSE ELIAS LOU MD [Primary Care Provider] - Follow up as needed
--- NOTE | 2019-12-30 00:12 | RADIOLOGY REPORT (SQ) ---
XR CHEST 1 VIEW HISTORY: Chest pain. COMPARISON: 06/06/2019 FINDINGS: The heart size is within normal limits. There is no pulmonary vascular congestion. No consolidation, pleural effusion, or pneumothorax is seen. The bony structures are preserved. IMPRESSION: No evidence of acute cardiopulmonary disease.
[2019-12-30 00:13] LABS: ABSOLUTE EOSINOPHILS # (AUTO) 0.1 10^3/uL (0.0-0.6); ABSOLUTE LYMPHOCYTES (AUTO) 2.2 10^3/uL (0.5-4.7); ABSOLUTE MONOCYTES (AUTO) 0.4 10^3/uL (0.1-1.4); ABSOLUTE NEUT (AUTO) 6.6 10^3/uL (1.7-8.2); BASOPHILS % (AUTO) 0.2 % (0-2); EOSINOPHILS % (AUTO) 1.5 % (0-6); HEMATOCRIT 45.3 % (36.0-47.0); HEMOGLOBIN 15.6 g/dL (12.0-15.5); LYMPHOCYTES % (AUTO) 23.4 % (13-45); MEAN CORPUSCULAR HEMOGLOBIN 31.5 pg (27.0-33.4); MEAN CORPUSCULAR HGB CONC 34.5 g/dL (32.0-36.0); MEAN CORPUSCULAR VOLUME 91 fl (80-97); MONOCYTES % (AUTO) 4.3 % (3-13); PLATELET COUNT 128 10^3/uL (150-450); RED BLOOD COUNT 4.96 10^6/uL (3.72-5.28); RED CELL DISTRIBUTION WIDTH 13.3 % (11.5-14.0); SEGMENTED NEUTROPHILS % (AUTO) 70.6 % (42-78); TOTAL CELLS COUNTED % (AUTO) 100 %; WHITE BLOOD COUNT 9.4 10^3/uL (4.0-10.5)
--- NOTE | 2019-12-30 00:18 | ER Document Report ---
Doctor's Note Notes: 12/30/19 00:15 Was in pit waiting and stated that she no longer wanted to be seen. Patient has requested to leave AGAINST MEDICAL ADVICE. The patient has chosen to leave the facility against medical advice. The relevant issues have been reviewed and discussed with the patient and family at the bedside. At the time of this assessment there is no indication for involuntary commitment. The patient is alert, oriented, and able to express clearly their reasoning for not wanting to remain in the emergency department for further treatment. The patient is not clinically psychotic, intoxicated, and denies and suicidal ideation. Differential or suspected diagnoses based on medical screening exam: Nausea, vomiting, abdominal pain The patient is aware of the concerning diagnoses and acknowledges understanding of the reasons for the following recommendations: Loss of life, permanent disability, chronic pain, worsening of condition, cardiac dysfunction, respiratory dysfunction loss of current lifestyle, gastrointestinal dysfunction, kidney dysfunction. The following recommendations/services were offered and refused: Further evaluation and treatment The following risks were explained: , permanent disability, loss of function, chronic pain, worsening condition, respiratory dysfunction, cardiac dysfunction, loss of current lifestyle. Clinical impression: Patient is competent to make decisions regarding the medical that is being offered. Discharge - Discharge Clinical Impression: Left against medical advice Nausea and vomiting Qualifiers: Vomiting type: unspecified Vomiting Intractability: non-intractable Qualified Code(s): R11.2 - Nausea with vomiting, unspecified Abdominal pain Qualifiers: Abdominal location: generalized Qualified Code(s): R10.84 - Generalized abdominal pain Condition: Stable Disposition: HOME, SELF-CARE Additional Instructions: Requested to leave AGAINST MEDICAL ADVICE she was counseled on the risks and benefits of leaving AGAINST MEDICAL ADVICE including but not limited to loss of life, loss of current lifestyle, respiratory dysfunction, cardiac dysfunction, gastrointestinal dysfunction. You can return to the emergency room at any time for further evaluation and treatment. Referrals: JOSE ELIAS LOU MD [Primary Care Provider] - Follow up as needed
[2019-12-30 00:25] LABS: ALBUMIN 4.4 g/dL (3.5-5.0); ALKALINE PHOSPHATASE 113 U/L (38-126); ANION GAP 18 (5-19); ASPARTATE AMINO TRANSFERASE 23 U/L (14-36); BILIRUBIN,DIRECT 0.2 mg/dL (0.0-0.4); BILIRUBIN,TOTAL 1.7 mg/dL (0.2-1.3); BLOOD UREA NITROGEN 14 mg/dL (7-20); CALCIUM 9.4 mg/dL (8.4-10.2); CARBON DIOXIDE 23 mmol/L (22-30); CHLORIDE 102 mmol/L (98-107); CREATINE KINASE 38 U/L (30-135); GLUCOSE 212 mg/dL (75-110); POTASSIUM 3.9 mmol/L (3.6-5.0); TOTAL PROTEIN 6.9 g/dL (6.3-8.2)
[2019-12-30 00:33] LABS: CREATINE KINASE MB 0.71 ng/mL (<4.55)
[2019-12-30 00:41] LABS: TROPONIN I < 0.012 ng/mL
== END 2019-12-30 00:24 | disposition home or self-care (01) ==
LOC: ER 22:13
DX: R10.84 Generalized abdominal pain (principal); R11.2 Nausea with vomiting, unspecified; R14.2 Eructation; E11.65 Type 2 diabetes mellitus with hyperglycemia; E78.5 Hyperlipidemia, unspecified; I10 Essential (primary) hypertension; J44.9 Chronic obstructive pulmonary disease, unspecified; Z88.0 Allergy status to penicillin; Z88.8 Allergy status to other drugs, medicaments and biological substances; Z88.2 Allergy status to sulfonamides
CPT/HCPCS: 36415; 71045; 80053; 82550; 82553; 82962; 84484; 85025; 99285

== ENCOUNTER 2020-01-17 18:16 | Emergency (ER) | payer MEDICAID ==
[2020-01-17] MEDS ORDERED: ONDANSETRON HCL INJ/PF 4 MG/2 ML SDV IV ONE (18:52)
[2020-01-17 19:06] LABS: ABSOLUTE EOSINOPHILS # (AUTO) 0.1 10^3/uL (0.0-0.6); ABSOLUTE LYMPHOCYTES (AUTO) 1.6 10^3/uL (0.5-4.7); ABSOLUTE MONOCYTES (AUTO) 0.3 10^3/uL (0.1-1.4); ABSOLUTE NEUT (AUTO) 7.5 10^3/uL (1.7-8.2); BASOPHILS % (AUTO) 0.4 % (0-2); EOSINOPHILS % (AUTO) 0.7 % (0-6); HEMATOCRIT 48.3 % (36.0-47.0); HEMOGLOBIN 16.8 g/dL (12.0-15.5); MEAN CORPUSCULAR HEMOGLOBIN 31.5 pg (27.0-33.4); MEAN CORPUSCULAR HGB CONC 34.9 g/dL (32.0-36.0); MEAN CORPUSCULAR VOLUME 90 fl (80-97); PLATELET COUNT 131 10^3/uL (150-450); RED BLOOD COUNT 5.35 10^6/uL (3.72-5.28); RED CELL DISTRIBUTION WIDTH 13.5 % (11.5-14.0); SEGMENTED NEUTROPHILS % (AUTO) 78.9 % (42-78); TOTAL CELLS COUNTED % (AUTO) 100 %; WHITE BLOOD COUNT 9.5 10^3/uL (4.0-10.5)
[2020-01-17 19:16] LABS: ALBUMIN 4.8 g/dL (3.5-5.0); ALKALINE PHOSPHATASE 172 U/L (38-126); ANION GAP 15 (5-19); ASPARTATE AMINO TRANSFERASE 32 U/L (14-36); BILIRUBIN,DIRECT 0.5 mg/dL (0.0-0.4); BILIRUBIN,TOTAL 1.3 mg/dL (0.2-1.3); BLOOD UREA NITROGEN 10 mg/dL (7-20); CALCIUM 10.1 mg/dL (8.4-10.2); CARBON DIOXIDE 29 mmol/L (22-30); CHLORIDE 98 mmol/L (98-107); GLUCOSE 308 mg/dL (75-110); POTASSIUM 3.9 mmol/L (3.6-5.0); TOTAL PROTEIN 7.9 g/dL (6.3-8.2)
[2020-01-17] MEDS ORDERED: PROCHLORPERAZINE EDISYLATE INJ 10 MG/2 ML VIAL IV ONE (19:35)
[2020-01-17] MEDS ORDERED: PANTOPRAZOLE SODIUM 40 MG VIAL IV ONE (19:36)
[2020-01-17] MEDS ORDERED: NORMAL SALINE 1000 ML 1,000 ML IV ONE (19:37)
[2020-01-17] MEDS ORDERED: HYDROMORPHONE HCL INJ/PF 2 MG/ML AMPULE IV ONE (19:38)
--- NOTE | 2020-01-17 19:39 | ER Document Report ---
ED GI/ - General Chief Complaint: Nausea/Vomiting Stated Complaint: VOMITING Time Seen by Provider: 01/17/20 19:34 Mode of Arrival: Ambulatory Information source: Patient Notes: 55-year-old woman presenting to the emergency department with a complaint of vomiting. She is been scheduled for upper endoscopy and has performed the preop for that procedure. She is also given prescriptions for Phenergan and Zofran to control nausea and vomiting, however, today she has been vomiting through those medications. She denies dizziness, lightheadedness or shortness of breath. TRAVEL OUTSIDE OF THE [place] IN LAST 30 DAYS: No - Related Data Allergies/Adverse Reactions: adhesive tape Allergy (Verified 07/03/19 01:09) carvedilol [From Coreg] Allergy (Verified 07/03/19 01:09) Penicillins Allergy (Verified 07/03/19 01:09) Sulfa (Sulfonamide Antibiotics) Allergy (Verified 07/03/19 01:09) Past Medical History - Social History Smoking Status: Current Some Day Smoker Family History: DM, Hypertension. denies: CAD, Malignancy - Past Medical History Cardiac Medical History: Reports: Hx Hypercholesterolemia, Hx Hypertension Denies: Hx Atrial Fibrillation, Hx Congestive Heart Failure, Hx Coronary Artery Disease, Hx Heart Attack, Hx Peripheral Vascular Disease, Hx Pulmonary Embolism, Hx Heart Murmur Pulmonary Medical History: Reports: Hx Bronchitis, Hx COPD, Hx Pneumonia Denies: Hx Asthma, Hx Respiratory Failure, Hx Sleep Apnea, Hx Tuberculosis Neurological Medical History: Reports: Hx Cerebrovascular Accident - CVA in 1995 (weakness remains L side), Hx Migraine, Hx Seizures. Denies: Hx Parkinson's Disease Endocrine Medical History: Reports: Hx Diabetes Mellitus Type 2. Denies: Hx Diabetes Mellitus Type 1, Hx Graves' Disease, Hx Hyperthyroidism, Hx Hypothyroidism Renal/ Medical History: Denies: Hx End Stage Renal Disease, Hx Kidney Stones, Hx Ovarian Cysts, Hx Peritoneal Dialysis, Hx Pelvic Inflammatory Disease Malignancy Medical History: Reports: Hx Cervical Cancer. Denies: Hx Breast Cancer, Hx Leukemia, Hx Lung Cancer, Hx Ovarian Cancer GI Medical History: Reports: Hx Gastroesophageal Reflux Disease. Denies: Hx Ci rrhosis, Hx Crohn's Disease, Hx Hepatitis, Hx Hiatal Hernia, Hx Irritable Bowel, Hx Liver Failure, Hx Pancreatitis, Hx Ulcer, Hx Ulcerative Colitis Musculoskeletal Medical History: Reports Hx Arthritis, Denies Hx Fibromyalgia, Denies Hx Gout, Denies Hx Multiple Sclerosis, Denies Hx Muscular Dystrophy, Denies Hx Systemic Lupus Erythematosus Skin Medical History: Denies Hx Eczema, Denies Hx Psoriasis Psychiatric Medical History: Reports: Hx Anxiety, Hx Bipolar Disorder, Hx Depression Denies: Hx Dementia, Hx Post Traumatic Stress Disorder, Hx Schizophrenia Traumatic Medical History: Reports: Hx Fractures - Both legs, R thumb Infectious Medical History: Denies: Hx Hepatitis, Hx HIV Past Surgical History: Reports: Hx Appendectomy, Hx Section - x2, Hx Cholecystectomy, Hx Hysterectomy, Hx Orthopedic Surgery - back--L3, 4, 5, Hx Umbilical Hernia, Hx Urinary Tract Surgery - bladder. Denies: Hx Bowel Surgery, Hx Colostomy, Hx Coronary Artery Bypass Graft, Hx Gastric Bypass Surgery, Hx Herniorrhaphy, Hx Mastectomy, Hx Pacemaker, Hx Tonsillectomy, Hx Tubal Ligation - Immunizations Immunizations up to date: Yes Hx Diphtheria, Pertussis, Tetanus Vaccination: Yes Review of Systems - Review of Systems Notes: Constitutional: Negative for fever. HENT: Negative for sore throat. Eyes: Negative for visual changes. Cardiovascular: Negative for chest pain. Respiratory: Negative for shortness of breath. Gastrointestinal: Negative for abdominal pain, vomiting or diarrhea. Genitourinary: + Vomiting, + hematemesis Musculoskeletal: Negative for back pain. Skin: Negative for rash. Neurological: Negative for headaches, weakness or numbness. 10 point ROS negative except as marked above and in HPI. Physical Exam - Vital signs Vitals: Temp Resp BP Pulse Ox 97.7 F 19 198/93 H 97 01/17/20 18:22 01/17/20 18:22 01/17/20 18:22 01/17/20 18:22 - Notes Notes: PHYSICAL EXAMINATION: Physical Exam: General: Well-nourished well-developed 55-year-old female in no acute distress HEENT: NC/AT, pupils equal round and reactive to light, MM moist,nares clear, oropharynx clear, airway patent Neck: supple, no adenopathy, no masses. Good range of motion Lungs: clear, no wheezing, no rales no rhonchi CVS: Regular rate and rhythm no murmur gallop or rub Abdomen: Soft, active, nontender, no masses, no hepatosplenomegaly Ext: No edema, clubbing or cyanosis. Neuro: Alert and responsive, moving all 4 extremities on command, cranial nerves intact, no focal findings Skin: Intact no open lesions, no rash Course - Vital Signs Vital signs: Temp Pulse Resp BP Pulse Ox 97.7 F 10 L 111/77 96 01/17/20 18:22 01/17/20 21:01 01/17/20 21:00 01/17/20 21:01 - Laboratory Result Diagrams: 01/17/20 18:30 01/17/20 18:30 Laboratory results interpreted by me: 01/17/20 01/17/20 18:30 18:30 RBC 5.35 H Hgb 16.8 H Hct 48.3 H Plt Count 131 L Seg Neutrophils % 78.9 H Glucose 308 H Direct Bilirubin 0.5 H Alkaline Phosphatase 172 H 01/17/20 22:12 I have reviewed laboratory data and used this information for the treatment decisions regarding the patient. Discharge - Discharge Clinical Impression: Tobacco use disorder, severe, dependence, Morbid obesity Nausea and vomiting Qualifiers: Vomiting type: unspecified Vomiting Intractability: unspecified Qualified Code(s): R11.2 - Nausea with vomiting, unspecified GERD (gastroesophageal reflux disease) Qualifiers: Esophagitis presence: without esophagitis Qualified Code(s): K21.9 - Gastro-eso phageal reflux disease without esophagitis Diabetes Qualifiers: Diabetes mellitus type: type 2 Diabetes mellitus half-way insulin use: without buttermilk drier operator use Diabetes mellitus complication status: with neurologic complications Diabetes mellitus complication detail: with other neurological complication Qualified Code(s): E11.49 - Type 2 diabetes mellitus with other diabetic neurological complication Condition: Good Disposition: HOME, SELF-CARE Instructions: Antinausea Medication ([facility]), Vomiting ([facility]) Additional Instructions: You were seen in the emergency department tonight with uncontrolled vomiting. Please use the medications as prescribed Compazine tablets and Compazine suppositories. Please follow-up with the full fashioned garment knitter as planned. If the symptoms are worsening or if you have other concerns you may return to the emergency department for further evaluation and treatment HOME CARE INSTRUCTIONS & INFORMATION: Thank you for choosing us for your medical needs. We hope you're satisfied with the care you received. After you leave, you must properly care for your problem and, at the same time, observe its progress. Any condition can change. Some illnesses can change rapidly over hours or days. If your condition worsens, return to the Emergency Department or see your physician promptly. ABOUT YOUR X-RAYS AND EKG'S: If you had an EKG or X-rays taken, they have been read by the Emergency Physician. The X-rays and EKG's will also be read by a Radiologist or Ticket Attendant within 24 hours. If discrepancies are noted, you will be notified by telephone. Please be certain the ED has a correct telephone number & address where you can be reached. Also, realize that some fractures or abnormalities do not show up on initial X-rays. If your symptoms continue, see your physician. ABOUT YOUR LABORATORY TEST: If you had laboratory tests, the results have been reviewed by the Emergency Physician. Some test results (for example cultures) may not be available for several days. You will be contacted if any test result shows you need additional treatment. Please be certain the ED has a correct telephone number and address where you can be reached. ABOUT YOUR MEDICATIONS: You will receive instructions on how to take your medicine on the prescription label you receive. Additional information may be p rovided by the Pharmacy. If you have questions afterwards, call the ED for clarification or further instructions. Some prescribed medications may cause drowsiness. Do not perform tasks such as driving a car or operating machinery without consulting your Pharmacist. If you feel you need a refill of pain medication, your condition will need re-evaluation. Please do not call for a refill of any medication. ABOUT YOUR SIGNATURE: Signature of this document acknowledges to followin. Understanding that you received emergency treatment and that you may be released before al medical problems are known or treated. Please be certain the ED has a correct phone number & address where you can be reached. 2. Acknowledgement that you will arrange for follow-up care as recommended. 3. Authorization for the Emergency Physician to provide information to your follow-up Physician in order to maximize your care. AT ANY TIME, IF YOUR SYMPTOMS CHANGE SIGNIFICANTLY OR WORSEN OR YOU DEVELOP NEW SYMPTOMS, RETURN TO THE EMERGENCY DEPARTMENT IMMEDIATELY FOR RE-EVALUATION. OUR GOAL IS TO PROVIDE EXCELLENT MEDICAL CARE! WE HOPE THAT WE HAVE MET YOUR EXPECTATIONS DURING YOUR EMERGENCY DEPARTMENT VISIT AND THAT YOU FEEL YOU HAVE RECEIVED EXCELLENT CARE! Prescriptions: Prochlorperazine Maleate [Compazine 10 mg Tablet] 10 mg PO Q6HP PRN #14 tablet PRN Reason: For Nausea/Vomiting Prochlorperazine Maleate [Compazine 25 Mg Supp.Rect] 25 mg CA Q6H PRN #10 supp.rect PRN Reason: For Nausea/Vomiting
[2020-01-17 22:46] VITALS: BP 115/80
== END 2020-01-17 22:47 | disposition home or self-care (01) ==
LOC: ER 18:16
DX: R11.2 Nausea with vomiting, unspecified (principal); E66.01 Morbid (severe) obesity due to excess calories; Z79.899 Other long term (current) drug therapy; Z88.8 Allergy status to other drugs, medicaments and biological substances; Z88.2 Allergy status to sulfonamides; Z88.0 Allergy status to penicillin; F17.200 Nicotine dependence, unspecified, uncomplicated; I10 Essential (primary) hypertension; J44.9 Chronic obstructive pulmonary disease, unspecified
CPT/HCPCS: 99284; 96361; 96374; 96375; 36415; 83690; 85025; 80053; J1170; C9113; J0780; J2405; J7030

== ENCOUNTER 2020-01-28 07:42 | Day surgery (SDC) | payer MEDICAID ==
[~2020-01-28 07:42] MED LIST: PROPOFOL INJ 200 MG/20 ML VIAL IV ONE
[2020-01-28] MEDS ORDERED: PROPOFOL INJ 200 MG/20 ML VIAL IV ONE (07:43)
--- NOTE | 2020-01-28 10:55 | Operative Report ---
Operative Report DATE OF SURGERY: 01/28/20 Operative Report: The risks benefits and alternatives of the procedure explained to the patient in detail and informed consent is obtained.A GIF Olympus video scope was inserted into the patient's mouth and hypopharynx ,the esophagus is identified intubated and insufflated, the scope was then advanced through the esophagus stomach and duodenum, retroflexion maneuver is done ,the esophagus stomach and first and second portions of the duodenum examined PREOPERATIVE DIAGNOSIS: Nausea vomiting POSTOPERATIVE DIAGNOSIS: Gastritis status post biopsy. Esophagitis status post biopsy OPERATION: EGD with biopsy SURGEON: MATILDA JERONIMO ANESTHESIA: LMAC TISSUE REMOVED OR ALTERED: As noted above. COMPLICATIONS: None. ESTIMATED BLOOD LOSS: None. INTRAOPERATIVE FINDINGS: As noted above. PROCEDURE: Patient tolerated the procedure well. No immediate postprocedure complications are noted. Patient is discharged in good condition. Discharge date 01/28/2020. Discharge diet: Regular. Discharge activity 2 to 3-week follow-up to discuss findings. Patient is instructed call the office or proceed to the emergency room should there be any further problems or questions. Wait on the pathology.
[2020-01-28 11:34] VITALS: BP 137/80
== END 2020-01-28 11:30 | disposition home or self-care (01) ==
LOC: END 07:42
PROVIDERS: ATTEND Internal Medicine Gastroenterology
DX: K29.50 Unspecified chronic gastritis without bleeding (principal); K20.9 Esophagitis, unspecified; R11.14 Bilious vomiting; E11.9 Type 2 diabetes mellitus without complications; Z79.4 Long term (current) use of insulin; I10 Essential (primary) hypertension; E78.00 Pure hypercholesterolemia, unspecified; J44.9 Chronic obstructive pulmonary disease, unspecified; K21.9 Gastro-esophageal reflux disease without esophagitis; G47.33 Obstructive sleep apnea (adult) (pediatric); R56.9 Unspecified convulsions; F31.9 Bipolar disorder, unspecified; E66.9 Obesity, unspecified; M06.9 Rheumatoid arthritis, unspecified; F17.200 Nicotine dependence, unspecified, uncomplicated; Z68.34 Body mass index [BMI] 34.0-34.9, adult; Z85.41 Personal history of malignant neoplasm of cervix uteri; Z86.73 Personal history of transient ischemic attack (TIA), and cerebral infarction without residual deficits; Z79.899 Other long term (current) drug therapy; Z88.0 Allergy status to penicillin; Z88.1 Allergy status to other antibiotic agents; Z91.048 Other nonmedicinal substance allergy status; Z03.818 Encounter for observation for suspected exposure to other biological agents ruled out
CPT/HCPCS: 43239; 82962; 87635; 88305 ×2; 00731; J2704; C9803; 731

== ENCOUNTER 2020-02-14 08:12 | Day surgery (SDC) | payer MEDICAID ==
[~2020-02-14 08:12] MED LIST changes: +LACTATED RINGERS 1000 ML IV PRN; +LIDOCAINE 0.5% INJ-PF (5 MG/ML) 50 ML SDV SUBCUT PRN
[2020-02-14] MEDS ORDERED: INSULIN REG, HUMAN 100 UNIT/ML 3 ML VIAL (PYX) ONE (09:08)
[2020-02-14] MEDS ORDERED: INSULIN REG, HUMAN 100 UNIT/ML 3 ML VIAL (PYX) IV ONE (10:00)
--- NOTE | 2020-02-14 10:00 | Operative Report ---
Operative Report DATE OF SURGERY: 02/14/20 Operative Report: The risk, benefits and alternatives of the procedure including the risk of bleeding, perforation requiring surgery have been explained to the patient in detail and informed consent has been obtained. Patient is placed in a left, lateral decubital position. Timeout was called. Propofol medication is administered. Rectal examination is done which did not reveal any masses, tears or fissures. An Olympus videoscope was introduced into the patient's rectum. Scope was then carefully advanced all the way to the cecum. Cecum was identified by the usual anatomical landmarks including the ileocecal valve as well as the appendiceal office. Photodocumentation is obtained. Scope was then sequentially pulled back via the various segments of the colon including the ascending colon, hepatic flexure, transverse colon, splenic flexure, descending colon finally into the rectosigmoid portions of the colon. Retroflexion maneuver is performed. The risks benefits and alternatives of the procedure explained to the patient in detail and informed consent is obtained.A GIF Olympus video scope was inserted into the patient's mouth and hypopharynx, the esophagus is identified intubated and insufflated ,the scope was then advanced through the esophagus stomach and duodenum ,retroflexion maneuver is done, the esophagus stomach and first and second portions of the duodenum examined PREOPERATIVE DIAGNOSIS: Change of bowel habits, chronic diarrhea. History of Bravo's esophagus needing ablation POSTOPERATIVE DIAGNOSIS: Bravo's esophagus status post radiofrequency ablation. Edematous tissue in the right side of the colon status post biopsy. Internal hemorrhoids OPERATION: Colonoscopy with biopsy. EGD with biopsy SURGEON: MATILDA JERONIMO ANESTHESIA: LMAC TISSUE REMOVED OR ALTERED: As noted above. COMPLICATIONS: None. ESTIMATED BLOOD LOSS: None. INTRAOPERATIVE FINDINGS: As noted above. PROCEDURE: Patient tolerated the procedure well. No immediate postprocedure complications are noted. Patient is discharged in good condition. Discharge date February 14, 2020. Discharge diet: Regular. Discharge activity: Regular. 2 to 3-week follow-up to discuss findings. Patient is instructed call the office or proceed to the emergency room should there be any further problems or questions. Wait on the pathology. Surveillance colonoscopy 5 years
[2020-02-14 10:35] VITALS: BP 120/58
== END 2020-02-14 10:40 | disposition home or self-care (01) ==
LOC: END 08:12
PROVIDERS: ATTEND Internal Medicine Gastroenterology
DX: K22.719 Barrett's esophagus with dysplasia, unspecified (principal); K52.9 Noninfective gastroenteritis and colitis, unspecified; E11.43 Type 2 diabetes mellitus with diabetic autonomic (poly)neuropathy; K64.8 Other hemorrhoids; J45.909 Unspecified asthma, uncomplicated; R06.02 Shortness of breath; I10 Essential (primary) hypertension; K21.9 Gastro-esophageal reflux disease without esophagitis; F17.200 Nicotine dependence, unspecified, uncomplicated; M06.9 Rheumatoid arthritis, unspecified; E66.9 Obesity, unspecified; Z68.37 Body mass index [BMI] 37.0-37.9, adult; Z79.4 Long term (current) use of insulin; Z79.899 Other long term (current) drug therapy; Z03.818 Encounter for observation for suspected exposure to other biological agents ruled out
CPT/HCPCS: 43270; 45380; 82962; 87635; 88305 ×2; 00813; J1815; J2704; C9803; 813

== ENCOUNTER 2020-03-12 09:46 | Emergency (ER) | payer MEDICAID ==
--- NOTE | 2020-03-12 10:29 | ER Document Report ---
ED Medical Screen (RME) - General Chief Complaint: Tremor Stated Complaint: TREMORS Time Seen by Provider: 03/12/20 10:27 Primary Care Provider: FRDERICK LUBIN FNP-C [Primary Care Provider] - Follow up as needed TRAVEL OUTSIDE OF THE [place] IN LAST 30 DAYS: No - HPI Notes: 03/12/20 10:28 55-year-old female to the emergency department with complaints of tremors that began this morning. She states that she has a history of these tremors. States it starts with this feeling in her stomach and then progresses to full body tremor. She was at her primary care doctor's office this morning when it began. Brief medical screening exam is illustrates tremors. I performed a brief medical screening exam on the patient determined that the patient needs further evaluation and management by main side provider. I have placed initial orders to help expedite care. - Related Data Allergies/Adverse Reactions: adhesive tape Allergy (Verified 03/12/20 09:57) carvedilol [From Coreg] Allergy (Verified 03/12/20 09:57) Penicillins Allergy (Verified 03/12/20 09:57) Sulfa (Sulfonamide Antibiotics) Allergy (Verified 03/12/20 09:57) Home Medications: humalog. lantus. gabapentin. duloxetine. lasix. potassium. nausea Past Medical History - Social History Chew tobacco use (# tins/day): No Frequency of alcohol use: None Drug Abuse: None - Past Medical History Cardiac Medical History: Reports: Hx Hypercholesterolemia, Hx Hypertension Denies: Hx Atrial Fibrillation, Hx Congestive Heart Failure, Hx Coronary Artery Disease, Hx Heart Attack, Hx Peripheral Vascular Disease, Hx Pulmonary Embolism, Hx Heart Murmur Pulmonary Medical History: Reports: Hx Bronchitis, Hx COPD, Hx Pneumonia Denies: Hx Asthma, Hx Respiratory Failure, Hx Sleep Apnea, Hx Tuberculosis Neurological Medical History: Reports: Hx Cerebrovascular Accident - CVA in 1995 (weakness remains L side), Hx Migraine, Hx Seizures. Denies: Hx Parkinson's Disease Endocrine Medical History: Reports: Hx Diabetes Mellitus Type 2. Denies: Hx Diabetes Mellitus Type 1, Hx Graves' Disease, Hx Hyperthyroidism, Hx Hypothyroidism Renal/ Medical History: Denies: Hx End Stage Renal Disease, Hx Kidney Stones, Hx Ovarian Cysts, Hx Peritoneal Dialysis, Hx Pelvic Inflammatory Disease Malignancy Medical History: Reports: Hx Cervical Cancer. Denies: Hx Breast Cancer, Hx Leukemia, Hx Lung Cancer, Hx Ovarian Cancer GI Medical History: Reports: Hx Gastroesophageal Reflux Disease. Denies: Hx Cirrhosis, Hx Crohn's Disease, Hx Hepatitis, Hx Hiatal Hernia, Hx Irritable Bowel, Hx Liver Failure, Hx Pancreatitis, Hx Ulcer, Hx Ulcerative Colitis Musculoskeltal Medical History: Reports Hx Arthritis, Denies Hx Fibromyalgia, Denies Hx Gout, Denies Hx Multiple Sclerosis, Denies Hx Muscular Dystrophy, Denies Hx Systemic Lupus Erythematosus Skin Medical History: Denies Hx Eczema, Denies Hx Psoriasis Psychiatric Medical History: Reports: Hx Anxiety, Hx Bipolar Disorder, Hx Depression Denies: Hx Dementia, Hx Post Traumatic Stress Disorder, Hx Schizophrenia Traumatic Medical History: Reports: Hx Fractures - Both legs, R thumb Infectious Medical History: Denies: Hx Hepatitis, Hx HIV Past Surgical History: Reports: Hx Appendectomy, Hx Section - x2, Hx Cholecystectomy, Hx Hysterectomy, Hx Orthopedic Surgery - back--L3, 4, 5, Hx Umbilical Hernia, Hx Urinary Tract Surgery - bladder. Denies: Hx Bowel Surgery, Hx Colostomy, Hx Coronary Artery Bypass Graft, Hx Gastric Bypass Surgery, Hx Herniorrhaphy, Hx Mastectomy, Hx Pacemaker, Hx Tonsillectomy, Hx Tubal Ligation - Immunizations Immunizations up to date: Yes Hx Diphtheria, Pertussis, Tetanus Vaccination: Yes Physical Exam - Vital signs Vitals: Temp Pulse Resp BP Pulse Ox 98.2 F 101 H 18 124/75 98 03/12/20 09:53 03/12/20 09:53 03/12/20 09:53 03/12/20 09:53 03/12/20 09:53 Course - Vital Signs Vital signs: Temp Pulse Resp BP Pulse Ox 98.2 F 101 H 18 124/75 98 03/12/20 09:58 03/12/20 09:53 03/12/20 09:53 03/12/20 09:53 03/12/20 09:53 Doctor's Discharge - Discharge Referrals: FREDRICK LUBIN FNP-C [Primary Care Provider] - Follow up as needed
[2020-03-12 10:44] LABS: ABSOLUTE EOSINOPHILS # (AUTO) 0.4 10^3/uL (0.0-0.6); ABSOLUTE LYMPHOCYTES (AUTO) 3.4 10^3/uL (0.5-4.7); ABSOLUTE MONOCYTES (AUTO) 0.6 10^3/uL (0.1-1.4); ABSOLUTE NEUT (AUTO) 4.9 10^3/uL (1.7-8.2); BASOPHILS % (AUTO) 0.5 % (0-2); EOSINOPHILS % (AUTO) 4.7 % (0-6); HEMATOCRIT 41.6 % (36.0-47.0); HEMOGLOBIN 14.2 g/dL (12.0-15.5); MEAN CORPUSCULAR HEMOGLOBIN 30.4 pg (27.0-33.4); MEAN CORPUSCULAR HGB CONC 34.2 g/dL (32.0-36.0); MEAN CORPUSCULAR VOLUME 89 fl (80-97); MONOCYTES % (AUTO) 6.4 % (3-13); PLATELET COUNT 129 10^3/uL (150-450); RED BLOOD COUNT 4.67 10^6/uL (3.72-5.28); RED CELL DISTRIBUTION WIDTH 13.6 % (11.5-14.0); SEGMENTED NEUTROPHILS % (AUTO) 52.4 % (42-78); TOTAL CELLS COUNTED % (AUTO) 100 %; WHITE BLOOD COUNT 9.4 10^3/uL (4.0-10.5)
[2020-03-12] MEDS ORDERED: ALTEPLASE INJ 100 MG VIAL IV ONE (10:49)
[2020-03-12] MEDS ORDERED: ALTEPLASE INJ 100 MG VIAL ONE (10:49)
[2020-03-12 11:03] LABS: ALKALINE PHOSPHATASE 109 U/L (38-126); ANION GAP 9 (5-19); ASPARTATE AMINO TRANSFERASE 39 U/L (14-36); BILIRUBIN,DIRECT 0.2 mg/dL (0.0-0.4); BILIRUBIN,TOTAL 0.6 mg/dL (0.2-1.3); BLOOD UREA NITROGEN 10 mg/dL (7-20); CALCIUM 10.3 mg/dL (8.4-10.2); CARBON DIOXIDE 29 mmol/L (22-30); CHLORIDE 102 mmol/L (98-107); GLUCOSE 82 mg/dL (75-110); POTASSIUM 3.8 mmol/L (3.6-5.0); TOTAL PROTEIN 6.6 g/dL (6.3-8.2)
--- NOTE | 2020-03-12 11:24 | RADIOLOGY REPORT (SQ) ---
EXAM DESCRIPTION: CTA HEAD IMAGES COMPLETED DATE/TIME: 03/12/2020 11:04 am REASON FOR STUDY: stroke COMPARISON: 06/06/2019 TECHNIQUE: Pre and post IV contrast scanning, thin section axial imaging through the brain to evalua te the arterial structures. Source and MIP images are saved and reviewed on PACS. Advanced 3D imaging as volume-rendering, MIPs, SSD performed? yes All CT scanners at this facility use dose modulation, iterative reconstruction, and/or weight based d osing when appropriate to reduce radiation dose to as low as reasonably achievable (ALARA). [facility]: Dose Right [facility]: CareDose [facility]: Dose Right [facility]: Teradose 4D [facility]: Bug Music CONTRAST TYPE AND DOSE: contrast/concentration: Isovue 350.00 mmol/ml; Total Contrast Delivered: 69. 9 ml; Total Saline Delivered: 75.0 ml RENAL FUNCTION: Not available. LIMITATIONS: Motion. FINDINGS: [place]: The anterior, middle, posterior cerebral arteries are all patent. No ev idence of aneurysm or focal stenosis. POSTERIOR CIRCULATION: The distal vertebral arteries are patent as is the basilar artery. No aneurysm . BRAIN: Normal. BONES: Intact as visualized. SINUSES: No fluid or mucosal thickening. OTHER: No other significant finding. IMPRESSION: Normal. COMMENT: Pertinent positive or negative findings of the imaging study reported as a CRITICAL EXAM t joes alejandro CANTRELL MD at11:11 on 03/12/2020. Category of Critical Exam: Stroke alert. TECHNICAL DOCUMENTATION: JOB ID: [id number] Quality ID # [id number]: Final reports with documentation of one or more dose reduction techniques (e.g., Au tomated exposure control, adjustment of the mA and/or kV according to patient size, use of iterative reconstruction technique) 2010 [employer]- All Rights Reserved Reading location - IP/workstation name: [email or web address]
--- NOTE | 2020-03-12 11:25 | ER Document Report ---
ED General - General Chief Complaint: Tremor Stated Complaint: TREMORS Time Seen by Provider: 03/12/20 10:27 Primary Care Provider: FREDRICK LUBIN FNP-C [Primary Care Provider] - Follow up as needed Notes: 55-year-old lady with a history of tremor and prior stroke that she says affects her left side presents brought in by EMS for generalized weakness and tremor. He was brought in from her doctor's office by EMS. I was asked to go to her room to see her although she was not a stroke alert In talking with her she has a severe stutter and tremors with very difficult to get information but with a series of yes or no questions have established that she says she developed right sided weakness at 830 or 845 within the doctor's office prior to getting here. She did not notify anyone of this and they did n ot ask so it has not been identified until my exam. She does not know she takes a blood thinner but I do not see one on her medication list. TRAVEL OUTSIDE OF THE [place] IN LAST 30 DAYS: No - Related Data Allergies/Adverse Reactions: adhesive tape Allergy (Verified 03/12/20 09:57) carvedilol [From Coreg] Allergy (Verified 03/12/20 09:57) Penicillins Allergy (Verified 03/12/20 09:57) Sulfa (Sulfonamide Antibiotics) Allergy (Verified 03/12/20 09:57) Home Medications: humalog. lantus. gabapentin. duloxetine. lasix. potassium. nausea Past Medical History - General Information source: Patient - Social History Smoking Status: Current Every Day Smoker Chew tobacco use (# tins/day): No Smoking Education Provided: Yes - The patient ED visit today was directly related to their abuse of tobacco. Frequency of alcohol use: None Drug Abuse: None Family History: DM, Hypertension. denies: CAD, Malignancy Patient has homicidal ideation: No - Past Medical History Cardiac Medical History: Reports: Hx Hypercholesterolemia, Hx Hypertension Denies: Hx Atrial Fibrillation, Hx Congestive Heart Failure, Hx Coronary Artery Disease, Hx Heart Attack, Hx Peripheral Vascular Disease, Hx Pulmonary Embolism, Hx Heart Murmur Pulmonary Medical History: Reports: Hx Bronchitis, Hx COPD, Hx Pneumonia Denies: Hx Asthma, Hx Respiratory Failure, Hx Sleep Apnea, Hx Tuberculosis Neurological Medical History: Reports: Hx Cerebrovascular Accident - CVA in 1995 (weakness remains L side), Hx Migraine, Hx Seizures. Denies: Hx Parkinson's Disease Endocrine Medical History: Reports: Hx Diabetes Mellitus Type 2. Denies: Hx Diabetes Mellitus Type 1, Hx Graves' Disease, Hx Hyperthyroidism, Hx Hypothyroidism Renal/ Medical History: Denies: Hx End Stage Renal Disease, Hx Kidney Stones, Hx Ovarian Cysts, Hx Peritoneal Dialysis, Hx Pelvic Inflammatory Disease Malignancy Medical History: Reports: Hx Cervical Cancer. Denies: Hx Breast Cancer, Hx Leukemia, Hx Lung Cancer, Hx Ovarian Cancer GI Medical History: Reports: Hx Gastroesophageal Reflux Disease. Denies: Hx Cirrhosis, Hx Crohn's Disease, Hx Hepatitis, Hx Hiatal Hernia, Hx Irritable Bowel, Hx Liver Failure, Hx Pancreatitis, Hx Ulcer, Hx Ulcerative Colitis Musculoskeletal Medical History: Reports Hx Arthritis, Denies Hx Fibromyalgia, Denies Hx Gout, Denies Hx Multiple Sclerosis, Denies Hx Muscular Dystrophy, Denies Hx Systemic Lupus Erythematosus Skin Medical History: Denies Hx Eczema, Denies Hx Psoriasis Psychiatric Medical History: Reports: Hx Anxiety, Hx Bipolar Disorder, Hx Depression Denies: Hx Dementia, Hx Post Traumatic Stress Disorder, Hx Schizophrenia Traumatic Medical History: Reports: Hx Fractures - Both legs, R thumb Infectious Medical History: Denies: Hx Hepatitis, Hx HIV Past Surgical History: Reports: Hx Appendectomy, Hx Section - x2, Hx Cholecystectomy, Hx Hysterectomy, Hx Orthopedic Surgery - back--L3, 4, 5, Hx Umbilical Hernia, Hx Urinary Tract Surgery - bladder. Denies: Hx Bowel Surgery, Hx Colostomy, Hx Coronary Artery Bypass Graft, Hx Gastric Bypass Surgery, Hx Herniorrhaphy, Hx Mastectomy, Hx Pacemaker, Hx Tonsillectomy, Hx Tubal Ligation - Immunizations Immunizations up to date: Yes Hx Diphtheria, Pertussis, Tetanus Vaccination: Yes Review of Systems - Review of Systems Notes: REVIEW OF SYSTEMS GEN: Denies fever, chills, weight loss ENT: Denies sore throat, nasal discharge, ear pain EYES: Denies blurry vision, eye pain, discharge CV: Denies chest pain, palpitations, edema RESP: Denies cough, shortness of breath, wheezing GI: Denies abdominal pain, nausea, vomiting, diarrhea MSK: Denies joint pain/swelling, edema, SKIN: Denies rash, skin lesions LYMPH: Denies swollen glands/lymph nodes NEURO: Stutter tremor right-sided weakness ness PSYCH: Denies depression, suicidal or homicidal ideation PHYSICAL EXAMINATION General: No acute distress, well-nourished Head: Atraumatic, normocephalic ENT: Mouth normal, oropharynx moist, no exudates or tonsillar enlargement Eyes: Conjunctiva normal, pupils equal, lids normal Neck: No JVD, supple, no guarding CVS: Normal rate, regular rhythm, no murmurs Resp: No resp distress, equal and normal breath sounds bilaterally GI: Nondistended, soft, no tenderness to palpation, no rebound or guarding Ext: No deformities, no edema, normal range of motion in upper and lower ext Back: No CVA or midline TTP Skin: No rash, warm Lymphatic: No lymphadeopathy noted Neuro: Slightly sleepy but arouses to voice. Right-sided lower facial weakness with preserved forehead, right arm and leg weakness 3-4 out of 5 with effort ag ainst gravity but cannot hold either up. Severe stutter and dysarthriaunknown if new or old NIH stroke score equals 13, race score equals 6 . Physical Exam - Vital signs Vitals: Temp Pulse Resp BP Pulse Ox 98.2 F 101 H 18 124/75 98 03/12/20 09:53 03/12/20 09:53 03/12/20 09:53 03/12/20 09:53 03/12/20 09:53 Course - Re-evaluation Re-evalutation: 03/12/20 11:23 Patient presents with acute right-sided neurologic deficits about 2 hours old per her report, that were unrecognized prior to my evaluation She is well within the window for IV TPA so I have activated as a code stroke immediately Her blood sugar is normal her blood pressure is okay I discussed with her daughter per her request who is her power of pearl glue operator who after a brief conversation consented to TPA administration after discussion of risks and benefits including bleeding and I confirmed her noncontrast study was negative with radiology. I did have a question about a density on the left near the lateral ventricle which seems to be choroid plexus, and the radiologist assured me that this is negative. CTA was done and is pending but on my read there is some left MCA occlusion/decreased flow TPA was started at about 11:20 AM as the [employer] helicopter arrived. The patient had previously been discussed with and accepted by Dr. Matt Wynn at [facility] - Vital Signs Vital signs: Temp Pulse Resp BP Pulse Ox 98.2 F 101 H 14 154/75 H 98 03/12/20 09:58 03/12/20 09:53 03/12/20 11:02 03/12/20 11:02 03/12/20 11:02 - Laboratory Result Diagrams: 03/12/20 10:15 03/12/20 10:15 Laboratory results interpreted by me: 03/12/20 03/12/20 10:15 10:15 Plt Count 129 L Calcium 10.3 H AST 39 H - Diagnostic Test Radiology reviewed: Image reviewed, Reports reviewed - EKG Interpretation by Me EKG shows normal: Sinus rhythm Rate: Normal Rhythm: NSR - No A. fib, no ST or T wave changes When compared to previous EKG there are: Previous EKG unavailable Critical Care Note - Critical Care Note Total time excluding time spent on procedures (mins): 71 Comments: The above patient is critically ill. Not including procedures, but including direct re-evaluations, speaking with patient and/or consultants, interpreting results, and documenting, I spent the total amount of minute listed listed above on critical care time Discharge - Discharge Clinical Impression: Stroke (cerebrum) Qualifiers: CVA mechanism: unspecified Qualified Code(s): I63.9 - Cerebral infarction, unspecified Condition: Critical Disposition: [facility] Referrals: FREDRICK LUBIN FNP-C [Primary Care Provider] - Follow up as needed
--- NOTE | 2020-03-12 11:28 | RADIOLOGY REPORT (SQ) ---
EXAM DESCRIPTION: CTA NECK IMAGES COMPLETED DATE/TIME: 03/12/2020 11:05 am REASON FOR STUDY: stroke COMPARISON: None. TECHNIQUE: Axial dynamic scanning technique with dynamic contrast enhancement through the extra-aircraft avionics technician nial carotid and vertebral arteries. Multiplanar reconstruction. 3-D MIPS and Volume-rendered imag es acquired at the workstation and saved to PACS. Images are reviewed in soft tissue, bone, lung w indows. All CT scanners at this facility use dose modulation, iterative reconstruction, and/or weight based d osing when appropriate to reduce radiation dose to as low as reasonably achievable (ALARA). [facility]: Dose Right [facility]: CareDose [facility]: Dose Right [facility]: Teradose 4D [facility]: [employer] RENAL FUNCTION: Not available. LIMITATIONS: None. FINDINGS: AORTIC ARCH: Normal three-vessel origin. Bilateral subclavian arteries are patent. No d issection. RIGHT CAROTIDS: Calcified plaque bifurcation. Less than 50% stenosis origin ICA. RIGHT VERTEBRAL: Patent. No dissection. LEFT CAROTIDS: Calcified plaque bifurcation. Less than 50% stenosis ICA origin. LEFT VERTEBRAL: Patent. No dissection. OTHER: Cystic nodule right thyroid. OTHER: 3-D reconstructions confirm findings. IMPRESSION: Less than 50% stenosis bilateral proximal ICAs. COMMENT: Quality ID #[id number]: Measurements of distal internal carotid diameter were used as the denomina tor for stenosis measurement. TECHNICAL DOCUMENTATION: JOB ID: [id number] Quality ID # [id number]: Final reports with documentation of one or more dose reduction techniques (e.g., Au tomated exposure control, adjustment of the mA and/or kV according to patient size, use of iterative reconstruction technique) 2010 [employer]- All Rights Reserved Reading location - IP/workstation name: [email or web address]
[2020-03-12 11:49] VITALS: BP 170/87
--- NOTE | 2020-03-12 13:25 | EKG REPORT ---
SEVERITY:- NORMAL ECG - SINUS RHYTHM : Confirmed by: Tommy Butler MD 12-Mar-2020 13:25:21
== END 2020-03-12 11:16 | disposition short-term general hospital (02) ==
LOC: ER 09:46
DX: I63.9 Cerebral infarction, unspecified (principal); R25.1 Tremor, unspecified; F17.200 Nicotine dependence, unspecified, uncomplicated; E78.00 Pure hypercholesterolemia, unspecified; I10 Essential (primary) hypertension; E11.9 Type 2 diabetes mellitus without complications; I69.354 Hemiplegia and hemiparesis following cerebral infarction affecting left non-dominant side; Z79.4 Long term (current) use of insulin; Z88.0 Allergy status to penicillin; Z88.2 Allergy status to sulfonamides
CPT/HCPCS: 93005; 99285; 96374; 37195; 36415; 83690; 85025; 80053; 70496; 70498; 93010; J2997

== ENCOUNTER → 2020-03-17 | Outpatient (CLI) | payer MEDICAID | LOC: RAD 07:30 | PROVIDERS: ATTEND Internal Medicine Gastroenterology | DX: Z53.09 Procedure and treatment not carried out because of other contraindication (principal); R42 Dizziness and giddiness ==

== ENCOUNTER → 2020-04-07 | Outpatient (CLI) | payer MEDICAID ==
--- NOTE | 2020-04-07 14:40 | RADIOLOGY REPORT (SQ) ---
EXAM DESCRIPTION: NM GASTRIC EMPTYING STUDY IMAGES COMPLETED DATE/TIME: 04/07/2020 10:57 am REASON FOR STUDY: BILIOUS VOMITING R11.14 BILIOUS VOMITING COMPARISON: None. RADIONUCLIDE AND DOSE: 2.07 millicuries Tc-99m Sulfur Colloid. A wide variety of solid foods have been used. The route of agent administration: Oral. TECHNIQUE: 1 minute serial static imaging performed at time of meal, 1 hour, 2 hours, 3 hours, and 4 hours as needed. Once stomach reaches 90% emptying, the test is complete. Image intensity values pl otted with respect to time with linear regression algorithm. LIMITATIONS: None. FINDINGS: Patient was observed for 3 hours. Immediate post meal serves as baseline. Gastric emptying at 30 minutes was 26%. Gastric emptying at 60 minutes was 45% Gastric emptying at 90 minutes was 59%. Gastric emptying at 120 minutes was 69%. Gastric emptying at 180 minutes was 91%. Normal values: 60 minutes: 30-90% retained. If less than 30%, abnormally rapid emptying. If greater than 90%, delaye d gastric emptying. 120 minutes: <60% retained. If greater than 60%, delayed gastric emptying. 240 minutes: <10% retained. If greater than 10%, delayed gastric emptying. IMPRESSION: NORMAL GASTRIC EMPTYING. TECHNICAL DOCUMENTATION: JOB ID: [id number] 2010 [employer]- All Rights Reserved Reading location - IP/workstation name: [email or web address]
== END ==
LOC: RAD 07:08
PROVIDERS: ATTEND Internal Medicine Gastroenterology
DX: R11.14 Bilious vomiting (principal)
CPT/HCPCS: 78264; A9541